=== PATIENT | female | born 1985 | race Caucasian/White ===

== ENCOUNTER 2016-11-24 13:28 | Emergency (ER) | payer MEDICAID, OTHER ==
[~2016-11-24] VITALS: Ht 170.2 cm; Wt 69.9 kg
[2016-11-24] MEDS ORDERED: SODIUM CHLORIDE 0.9% 500 ML IV ONE (18:09)
[2016-11-24] MEDS ORDERED: HYDROmorphone HCL 2 MG/ML VL IV ONE (18:15)
[2016-11-24] MEDS ORDERED: ONDANSETRON HCL 4 MG/2 ML VIAL IV ONE ×2 (18:15)
[2016-11-24 18:42] LABS: Basophils # (auto) 0 uL; Basophils % (auto) 0.6 % (0.0-2.0); Eosinophils # (auto) 0.1 uL; Eosinophils % (auto) 1.9 % (0.0-7.0); Hematocrit 36.2 % (36.0-46.0); Lymphocytes % (auto) 31.1 % (10.0-50.0); Mean Corpuscular Hemoglobin 29.8 pg (28.0-32.0); Mean Corpuscular Hgb Conc. 33.3 g/dL (32.0-36.0); Mean Corpuscular Volume 89.5 fL (80.0-100.0); Mean Platelet Volume 9.7 fL (7.4-10.4); Monocytes # (auto) 0.5 uL; Neutrophils # (auto) 3.8 uL; Neutrophils % (auto) 58.4 % (37.0-80.0); Platelet Count (auto) 222 10^3/uL (140-450); Red Cell Distribution Width 16.1 % (11.6-16.0); White Blood Cell 6.6 10^3/uL (4.4-10.8)
[2016-11-24 18:48] LABS: Albumin 3.3 g/dL (3.4-5.0); BUN/Creatinine Ratio 8.1; Calcium 7.7 mg/dL (8.5-10.1); Magnesium 2.4 mg/dL (1.6-2.6); Potassium 3.6 mmol/L (3.5-5.1)
[2016-11-24 18:50] LABS: Bilirubin, Total 0.1 mg/dL (0.2-1.0); Total Protein 6.4 g/dL (6.4-8.2)
[2016-11-24 20:15] VITALS: BP 116/71
== END 2016-11-24 20:55 | disposition home or self-care (01) ==
LOC: ER 13:28
DX: S16.1XXA Strain of muscle, fascia and tendon at neck level, initial encounter (principal); S30.1XXA Contusion of abdominal wall, initial encounter; S09.8XXA Other specified injuries of head, initial encounter; K21.9 Gastro-esophageal reflux disease without esophagitis; J45.909 Unspecified asthma, uncomplicated; Z90.710 Acquired absence of both cervix and uterus; F17.210 Nicotine dependence, cigarettes, uncomplicated; Z88.0 Allergy status to penicillin; Z88.6 Allergy status to analgesic agent; V49.49XA Driver injured in collision with other motor vehicles in traffic accident, initial encounter; Y93.89 Activity, other specified; Y99.8 Other external cause status; Y92.410 Unspecified street and highway as the place of occurrence of the external cause
CPT/HCPCS: 36415; 70450; 72125; 74176; 80053; 83735; 85025; 94761; 96374; 96375; 99285; J1170; J2405; J7030

== ENCOUNTER 2016-12-22 11:00 | Emergency (ER) | payer MEDICAID ==
[~2016-12-22] VITALS: Ht 170.2 cm; Wt 70.8 kg
[2016-12-22 11:56] LABS: Basophils # (auto) 0.1 uL; Basophils % (auto) 1.2 % (0.0-2.0); Eosinophils # (auto) 0.1 uL; Eosinophils % (auto) 1.1 % (0.0-7.0); Hematocrit 38.1 % (36.0-46.0); Hemoglobin 12.8 g/dL (12.2-16.2); Lymphocytes # (auto) 1.4 uL; Lymphocytes % (auto) 19.2 % (10.0-50.0); Mean Corpuscular Hemoglobin 29.5 pg (28.0-32.0); Mean Corpuscular Hgb Conc. 33.5 g/dL (32.0-36.0); Mean Corpuscular Volume 87.9 fL (80.0-100.0); Mean Platelet Volume 8.5 fL (7.4-10.4); Monocytes # (auto) 0.6 uL; Monocytes % (auto) 7.7 % (0.0-12.0); Neutrophils # (auto) 5.3 uL; Neutrophils % (auto) 70.8 % (37.0-80.0); Platelet Count (auto) 298 10^3/uL (140-450); Red Cell Distribution Width 14.4 % (11.6-16.0); White Blood Cell 7.5 10^3/uL (4.4-10.8)
[2016-12-22 12:18] LABS: Albumin 3.7 g/dL (3.4-5.0); BUN/Creatinine Ratio 6.1; Bilirubin, Total 0.4 mg/dL (0.2-1.0); Calcium 8.9 mg/dL (8.5-10.1); Potassium 3.9 mmol/L (3.5-5.1)
[2016-12-22 12:19] VITALS: BP 122/81
== END 2016-12-22 15:09 | disposition home or self-care (01) ==
LOC: ER 11:04
DX: J40 Bronchitis, not specified as acute or chronic (principal); J45.909 Unspecified asthma, uncomplicated; K21.9 Gastro-esophageal reflux disease without esophagitis; F17.210 Nicotine dependence, cigarettes, uncomplicated
CPT/HCPCS: 36415; 70450; 71010; 80053; 85025

== ENCOUNTER 2017-03-17 19:02 | Emergency (ER) | payer MEDICAID ==
[~2017-03-17] VITALS: Ht 170.2 cm; Wt 70.3 kg
[2017-03-17 19:51] LABS: Urine RBC None Seen /hpf (0 - 4)
[2017-03-17 20:10] LABS: Urine Bilirubin Negative (Negative); Urine Blood Negative /uL (Negative); Urine Color Yellow (Yellow); Urine Glucose Normal (Normal); Urine Ketone Negative (Negative); Urine Mucus FEW (None Seen); Urine Nitrite Negative (Negative); Urine Squamous Epithelial Cell MOD /hpf (<5); Urine Urobilinogen Normal (Negative)
[2017-03-17 23:44] LABS: Basophils # (auto) 0.1 uL; Basophils % (auto) 0.9 % (0.0-2.0); Eosinophils # (auto) 0 uL; Eosinophils % (auto) 0.6 % (0.0-7.0); Hemoglobin 12.3 g/dL (12.2-16.2); Lymphocytes # (auto) 1.3 uL; Lymphocytes % (auto) 15.3 % (10.0-50.0); Mean Corpuscular Hemoglobin 28.6 pg (28.0-32.0); Mean Corpuscular Hgb Conc. 33.2 g/dL (32.0-36.0); Mean Platelet Volume 8.4 fL (7.4-10.4); Monocytes # (auto) 0.6 uL; Monocytes % (auto) 7.5 % (0.0-12.0); Neutrophils # (auto) 6.2 uL; Neutrophils % (auto) 75.7 % (37.0-80.0); Platelet Count (auto) 231 10^3/uL (140-450); Red Cell Distribution Width 15.6 % (11.6-16.0); White Blood Cell 8.2 10^3/uL (4.4-10.8)
[2017-03-18 00:03] LABS: INR 0.93 (0.9-1.15); Partial Thromboplastin Time 31.6 sec (22.64-33.71); Prothrombin Time 10.1 sec (9.37-12.3)
[2017-03-18 00:06] LABS: Albumin 3.4 g/dL (3.4-5.0); Calcium 8.3 mg/dL (8.5-10.1)
[2017-03-18 00:08] LABS: Bilirubin, Total 0.3 mg/dL (0.2-1.0); Total Protein 7.4 g/dL (6.4-8.2)
[2017-03-18] MEDS ORDERED: IOHEXOL 300 MG/ML 100ML BOTTLE IJ ONE (02:21)
[2017-03-18] MEDS ORDERED: ONDANSETRON HCL 4 MG/2 ML VIAL IV ONE (02:30)
[2017-03-18] MEDS ORDERED: SODIUM CHLORIDE 0.9% 1,000 ML IV ONE (02:30)
[2017-03-18] MEDS ORDERED: HYDROmorphone HCL 2 MG/ML VL IV ONE (02:30)
[2017-03-18] MEDS ORDERED: LEVOFLOXACIN 750MG 150 ML IV ONE (04:15)
[2017-03-18] MEDS ORDERED: methylPREDNISolone SOD SUCC 125 MG/2 ML VL IV ONE (04:15)
[2017-03-18 07:46] VITALS: BP 106/64
== END 2017-03-18 08:05 | disposition home or self-care (01) ==
LOC: ER 19:19
DX: R59.9 Enlarged lymph nodes, unspecified (principal); J35.2 Hypertrophy of adenoids; J34.9 Unspecified disorder of nose and nasal sinuses; R51 Headache; J45.909 Unspecified asthma, uncomplicated; K21.9 Gastro-esophageal reflux disease without esophagitis; F17.210 Nicotine dependence, cigarettes, uncomplicated; Z88.0 Allergy status to penicillin; Z88.6 Allergy status to analgesic agent; Z90.710 Acquired absence of both cervix and uterus
CPT/HCPCS: 36415; 70450; 70490; 70491; 72125; 80053; 81001; 81025; 85025; 85610; 85730; 96361; 96365; 96375; 99285; J1170; J1956; J2405; J2930; J7030; Q9967

== ENCOUNTER 2017-03-23 13:13 | Emergency (ER) | payer MEDICAID ==
[~2017-03-23] VITALS: Ht 170.2 cm; Wt 72.6 kg
[2017-03-23 13:40] VITALS: BP 115/71
== END 2017-03-23 15:43 | disposition home or self-care (01) ==
LOC: ER 13:13
DX: J02.9 Acute pharyngitis, unspecified (principal); J34.9 Unspecified disorder of nose and nasal sinuses; I48.91 Unspecified atrial fibrillation; K21.9 Gastro-esophageal reflux disease without esophagitis; F17.210 Nicotine dependence, cigarettes, uncomplicated; Z90.710 Acquired absence of both cervix and uterus; Z88.6 Allergy status to analgesic agent; Z88.0 Allergy status to penicillin

== ENCOUNTER 2017-04-24 12:31 | Emergency (ER) | payer MEDICAID ==
[~2017-04-24] VITALS: Ht 170.2 cm; Wt 73.9 kg
[2017-04-24 12:58] VITALS: BP 116/73
[2017-04-24] MEDS ORDERED: KETOROLAC TROMETH 60MG/2ML VIAL IM ONE (13:30)
== END 2017-04-24 14:00 | disposition home or self-care (01) ==
LOC: ER 12:34
DX: J01.01 Acute recurrent maxillary sinusitis (principal); J45.909 Unspecified asthma, uncomplicated; K21.9 Gastro-esophageal reflux disease without esophagitis; F17.210 Nicotine dependence, cigarettes, uncomplicated; Z88.5 Allergy status to narcotic agent; Z88.0 Allergy status to penicillin; Z88.6 Allergy status to analgesic agent; Z90.710 Acquired absence of both cervix and uterus
CPT/HCPCS: 96372; 99283; J1885

== ENCOUNTER 2017-05-24 11:18 | Emergency (ER) | payer MEDICAID ==
[~2017-05-24] VITALS: Ht 170.2 cm; Wt 71.7 kg
[2017-05-24 17:11] LABS: Basophils # (auto) 0.1 uL; Eosinophils # (auto) 0.1 uL; Eosinophils % (auto) 0.8 % (0.0-7.0); Hematocrit 40.6 % (36.0-46.0); Hemoglobin 13.7 g/dL (12.2-16.2); Lymphocytes # (auto) 2.1 uL; Lymphocytes % (auto) 27.9 % (10.0-50.0); Mean Corpuscular Hemoglobin 29.8 pg (28.0-32.0); Mean Corpuscular Hgb Conc. 33.7 g/dL (32.0-36.0); Mean Corpuscular Volume 88.3 fL (80.0-100.0); Mean Platelet Volume 8.9 fL (7.4-10.4); Monocytes # (auto) 0.6 uL; Monocytes % (auto) 7.3 % (0.0-12.0); Neutrophils # (auto) 4.8 uL; Platelet Count (auto) 194 10^3/uL (140-450); Red Cell Distribution Width 16.1 % (11.6-16.0); White Blood Cell 7.6 10^3/uL (4.4-10.8)
[2017-05-24] MEDS ORDERED: SODIUM CHLORIDE 0.9% 1,000 ML IV ONE (17:26)
[2017-05-24 17:28] LABS: Albumin 3.9 g/dL (3.4-5.0); BUN/Creatinine Ratio 6.4; Calcium 8.5 mg/dL (8.5-10.1); Potassium 3.6 mmol/L (3.5-5.1)
[2017-05-24] MEDS ORDERED: methylPREDNISolone SOD SUCC 125 MG/2 ML VL IV ONE (17:30)
[2017-05-24] MEDS ORDERED: ALBUTEROL SULF 2.5 MG/0.5ML(0.5%) NEB SOLN HHN ONE (17:30)
[2017-05-24] MEDS ORDERED: IPRATROPIUM BROM 0.5 MG/2.5ML INH SOL HHN ONE (17:30)
[2017-05-24 17:31] LABS: Bilirubin, Total 0.3 mg/dL (0.2-1.0); Total Protein 7.6 g/dL (6.4-8.2)
[2017-05-24 19:10] VITALS: BP 101/65
== END 2017-05-24 19:14 | disposition home or self-care (01) ==
LOC: ER 11:18
DX: J40 Bronchitis, not specified as acute or chronic (principal); R11.2 Nausea with vomiting, unspecified; K21.9 Gastro-esophageal reflux disease without esophagitis; Z87.891 Personal history of nicotine dependence; Z88.0 Allergy status to penicillin; Z88.6 Allergy status to analgesic agent; Z85.42 Personal history of malignant neoplasm of other parts of uterus; Z90.710 Acquired absence of both cervix and uterus
CPT/HCPCS: 36415; 71010; 80053; 85025; 94640; 94761; 96361; 96374; 99285; J2930; J7030

== ENCOUNTER 2019-05-23 01:25 | Emergency (ER) | payer MEDICAID ==
[~2019-05-23] VITALS: Ht 170.2 cm; Wt 71.7 kg
[2019-05-23] MEDS ORDERED: SODIUM CHLORIDE 0.9% 1,000 ML IV ONE (03:00)
[2019-05-23] MEDS ORDERED: PROMETHAZINE HCL 25 MG/ML 1ML IV ONE (03:00)
[2019-05-23] MEDS ORDERED: KETOROLAC TROMETH 30 MG/ML 1ML VIAL IV ONE (03:15)
[2019-05-23 03:26] LABS: Basophils # (auto) 0.1 uL; Basophils % (auto) 1.1 % (0.0-2.0); Eosinophils # (auto) 0.1 uL; Eosinophils % (auto) 0.9 % (0.0-7.0); Hematocrit 40.2 % (36.0-46.0); Hemoglobin 13.8 g/dL (12.2-16.2); Lymphocytes # (auto) 2.1 uL; Lymphocytes % (auto) 35.7 % (10.0-50.0); Mean Corpuscular Hemoglobin 31.4 pg (28.0-32.0); Mean Corpuscular Hgb Conc. 34.2 g/dL (32.0-36.0); Mean Corpuscular Volume 91.7 fL (80.0-100.0); Monocytes # (auto) 0.4 uL; Monocytes % (auto) 6.8 % (0.0-12.0); Neutrophils # (auto) 3.3 uL; Neutrophils % (auto) 55.5 % (37.0-80.0); Platelet Count (auto) 207 10^3/uL (140-450); Red Blood Cells 4.38 10^6/uL (4.0-5.20); Red Cell Distribution Width 13.5 % (11.8-14.3)
[2019-05-23] MEDS ORDERED: MORPHINE SULFATE 4 MG/ML SYR/VIAL IV ONE (03:45)
[2019-05-23 03:50] LABS: Albumin 4.1 g/dL (3.4-5.0); BUN/Creatinine Ratio 7.2; Calcium 8.5 mg/dL (8.5-10.1); Potassium 3.2 mmol/L (3.5-5.1)
[2019-05-23 03:52] LABS: Bilirubin, Total 0.4 mg/dL (0.2-1.0); Total Protein 7.3 g/dL (6.4-8.2)
[2019-05-23] MEDS ORDERED: LORazepam 2MG/ML-1ML VIAL IV ONE (04:00)
[2019-05-23 06:20] VITALS: BP 96/62
== END 2019-05-23 06:48 | disposition home or self-care (01) ==
LOC: ER 01:29
DX: G43.509 Persistent migraine aura without cerebral infarction, not intractable, without status migrainosus (principal); K52.9 Noninfective gastroenteritis and colitis, unspecified; F17.210 Nicotine dependence, cigarettes, uncomplicated; K21.9 Gastro-esophageal reflux disease without esophagitis; J45.909 Unspecified asthma, uncomplicated
CPT/HCPCS: 36415; 70450; 80053; 85025; 96361; 96374; 96375; 99284; J1885; J2060; J2550; J7030

== ENCOUNTER 2022-12-31 23:40 | Inpatient (IN) | payer MEDICAID ==
[~2022-12-31] VITALS: Ht 170.2 cm; Wt 68.4 kg
[2023-01-01] MEDS ORDERED: PANTOPRAZOLE 40mg/50ML NS AE 50 ML IV ONE ×2 (01:30→10:15)
[2023-01-01] MEDS ORDERED: PANTOPRAZOLE 80 MG in SODIUM CHL 0.9% 100 ML IV ONE (01:30)
[2023-01-01 01:43] LABS: Basophils # (auto) 0.1 10 ^3/uL (0-0.2); Basophils % (auto) 1.5 % (0.0-2.0); Eosinophils # (auto) 0.1 10 ^3/uL (0-0.8); Eosinophils % (auto) 1.3 % (0.0-7.0); Hematocrit 40.2 % (36.0-46.0); Hemoglobin 13.9 g/dL (12.2-16.2); Lymphocytes % (auto) 35.7 % (10.0-50.0); Mean Corpuscular Hemoglobin 32.3 pg (28.0-32.0); Mean Corpuscular Hgb Conc. 34.7 g/dL (32.0-36.0); Monocytes # (auto) 0.4 10 ^3/uL (0-1.3); Monocytes % (auto) 6.6 % (0.0-12.0); Neutrophils % (auto) 54.9 % (37.0-80.0); Nucleated Red Blood Cells % 0.1 %; Red Blood Cells 4.32 10^6/uL (4.0-5.20); Red Cell Distribution Width 13.5 % (11.8-14.3); White Blood Cell 5.5 10^3/uL (4.4-10.8)
[2023-01-01 01:49] LABS: Urine Amorphous Crystal FEW /hpf (None Seen); Urine Bacteria NONE SEEN /hpf (None Seen); Urine Blood Negative /uL (Negative); Urine Specific Gravity 1.011 (1.001-1.035); Urine WBC 3 /hpf (0 - 5)
[2023-01-01 01:58] LABS: Partial Thromboplastin Time 28.3 sec (24.6-33.4)
[2023-01-01 01:59] LABS: Albumin 3.5 g/dL (3.4-5.0); BUN/Creatinine Ratio 9.2 (10.0-20.0); Calcium 8.8 mg/dL (8.5-10.1); Potassium 3.4 mmol/L (3.5-5.1)
[2023-01-01 02:02] LABS: Bilirubin, Total 0.3 mg/dL (0.2-1.0); Total Protein 6.3 g/dL (6.4-8.2)
[2023-01-01] MEDS ORDERED: PANTOPRAZOLE 40 MG/10 ML VIAL INJ IV ONE (02:17)
[2023-01-01] MEDS ORDERED: ONDANSETRON HCL 4 MG/2 ML VIAL ONE (02:30)
[2023-01-01] MEDS ORDERED: MORPHINE SULFATE 4 MG/ML SYR/VIAL ONE (02:30)
[2023-01-01] MEDS ORDERED: ONDANSETRON HCL 4 MG/2 ML VIAL IV ONE (02:45)
[2023-01-01] MEDS ORDERED: HYDROmorphone HCL 2 MG/ML VL/or syr IV ONE (02:45)
[2023-01-01] MEDS ORDERED: LACTATED RINGER'S 1,000 ML IV ONE ×2 (03:45→06:45)
[2023-01-01] MEDS ORDERED: KETOROLAC TROMETH 30 MG/ML 1ML VIAL IV ONE (06:45)
[2023-01-01] MEDS ORDERED: ALBUMIN 25% 100 ML IV ONE (07:15)
[2023-01-01] MEDS ORDERED: POTASSIUM CHL 20 Meq TABLET PO ONE (10:15)
[2023-01-01] MEDS: ONDANSETRON HCL 4 MG/2 ML VIAL IV PRN ×3 (11:35→21:23)
[2023-01-01] MEDS: HYDROmorphone HCL 2 MG/ML VL/or syr IV PRN ×3 (11:38→21:23)
[2023-01-01] MEDS: SODIUM CHLORIDE 0.9% 1,000 ML IV SCH ×2 (11:41→21:23)
[2023-01-01] MEDS: SUCRALFATE 1 GM/10 ML ORAL SUSP PO SCH (22:13)
[2023-01-02] MEDS: ONDANSETRON HCL 4 MG/2 ML VIAL IV PRN ×4 (02:24→22:04)
[2023-01-02] MEDS: HYDROmorphone HCL 2 MG/ML VL/or syr IV PRN ×4 (02:28→22:03)
[2023-01-02 02:43] VITALS: BP 96/59
[2023-01-02] MEDS: SODIUM CHLORIDE 0.9% 1,000 ML IV SCH ×3 (02:55→22:02)
[2023-01-02] MEDS ORDERED: CARI1CAP PO (04:11)
[2023-01-02] MEDS ORDERED: ROSU1TAB12 PO (04:11)
[2023-01-02] MEDS ORDERED: GABA300C10 PO (04:11)
[2023-01-02] MEDS ORDERED: ONDA-144 PO ×2 (04:11)
[2023-01-02] MEDS ORDERED: ASPI-498 OR (04:11)
[2023-01-02] MEDS ORDERED: HYDR-4798 PO (04:11)
[2023-01-02] MEDS ORDERED: CARI-277 PO (04:11)
[2023-01-02] MEDS ORDERED: TOPI1CAP (04:11)
[2023-01-02] MEDS ORDERED: AMIT1TAB34 PO (04:11)
[2023-01-02 05:00] VITALS: BP 83/53
[2023-01-02 06:10] LABS: Basophils # (auto) 0 10 ^3/uL (0-0.2); Basophils % (auto) 0.7 % (0.0-2.0); Eosinophils # (auto) 0.1 10 ^3/uL (0-0.8); Eosinophils % (auto) 1.1 % (0.0-7.0); Hematocrit 33.6 % (36.0-46.0); Hemoglobin 11.5 g/dL (12.2-16.2); Lymphocytes # (auto) 2.1 10 ^3/uL (0.4-5.4); Lymphocytes % (auto) 31.7 % (10.0-50.0); Mean Corpuscular Hemoglobin 32.3 pg (28.0-32.0); Mean Corpuscular Hgb Conc. 34.1 g/dL (32.0-36.0); Mean Corpuscular Volume 94.7 fL (80.0-100.0); Monocytes # (auto) 0.4 10 ^3/uL (0-1.3); Monocytes % (auto) 6.1 % (0.0-12.0); Neutrophils # (auto) 3.9 10 ^3/uL (1.6-8.6); Neutrophils % (auto) 60.4 % (37.0-80.0); Nucleated Red Blood Cells % 0.1 %; Red Blood Cells 3.55 10^6/uL (4.0-5.20); Red Cell Distribution Width 13.9 % (11.8-14.3); White Blood Cell 6.5 10^3/uL (4.4-10.8)
[2023-01-02] MEDS: SUCRALFATE 1 GM/10 ML ORAL SUSP PO SCH ×4 (06:13→22:02)
[2023-01-02 06:39] LABS: Potassium 3.4 mmol/L (3.5-5.1)
[2023-01-02 06:57] LABS: Albumin 2.8 g/dL (3.4-5.0); BUN/Creatinine Ratio 8.9 (10.0-20.0); Bilirubin, Total 0.3 mg/dL (0.2-1.0); Calcium 7.8 mg/dL (8.5-10.1); Total Protein 4.6 g/dL (6.4-8.2)
[2023-01-02 08:00] VITALS: BP 107/75
[2023-01-02 09:00] VITALS: BP 107/75
[2023-01-02] MEDS ORDERED: RIZA10TA22 PO (16:21)
[2023-01-02] MEDS: ACETAMINOPHEN 325 MG TAB PO PRN ×2 (18:25→23:03)
[2023-01-02 22:00] VITALS: BP 103/57
[2023-01-03] MEDS: SODIUM CHLORIDE 0.9% 1,000 ML IV SCH ×3 (03:30→20:35)
[2023-01-03 05:00] VITALS: BP 96/54
[2023-01-03] MEDS: SUCRALFATE 1 GM/10 ML ORAL SUSP PO SCH ×4 (06:03→21:04)
[2023-01-03 09:00] VITALS: BP_SYST 103; BP_SYST 95; BP_DIAS 52; BP_DIAS 69
[2023-01-03] MEDS: ONDANSETRON HCL 4 MG/2 ML VIAL IV PRN ×3 (10:19→20:42)
[2023-01-03] MEDS: HYDROmorphone HCL 2 MG/ML VL/or syr IV PRN ×3 (10:19→20:42)
[2023-01-03] MEDS ORDERED: PANTOPRAZOLE 40 MG/10 ML VIAL INJ IV ONE (11:00)
[2023-01-03] MEDS: ACETAMINOPHEN 325 MG TAB PO PRN ×3 (11:22→23:20)
[2023-01-03 13:00] VITALS: BP 100/59
[2023-01-03 16:53] VITALS: BP 103/64
[2023-01-03] MEDS: DOCUSATE SOD 100 MG CAP PO PRN (20:41)
[2023-01-03] MEDS: PANTOPRAZOLE 40 MG/10 ML VIAL INJ IV SCH (21:04)
[2023-01-03 22:00] VITALS: BP 123/78
[2023-01-04] MEDS: HYDROmorphone HCL 2 MG/ML VL/or syr IV PRN ×5 (02:17→22:27)
[2023-01-04] MEDS: ONDANSETRON HCL 4 MG/2 ML VIAL IV PRN ×4 (02:17→22:26)
[2023-01-04 05:00] VITALS: BP 95/62
[2023-01-04] MEDS: SODIUM CHLORIDE 0.9% 1,000 ML IV SCH ×3 (05:39→22:44)
[2023-01-04] MEDS: SUCRALFATE 1 GM/10 ML ORAL SUSP PO SCH ×4 (06:13→22:26)
[2023-01-04] MEDS ORDERED: diphenhdrAMINE HCL 50 MG/1 ML VL ONE (07:11)
[2023-01-04] MEDS ORDERED: FLUMAZENIL 0.1 MG/ML INJ 10ML MDV IV ONE (07:23)
[2023-01-04] MEDS ORDERED: NALOXONE HCL 0.4 MG/ML VIAL ONE (07:23)
[2023-01-04] MEDS ORDERED: LIDOCAINE VISCOUS 2% 15ML UD ONE (08:51)
[2023-01-04] MEDS: MIDAZOLAM HCL 2MG/2ML 2ml VIAL (1mg/ml) ONE ×3 (08:53→08:59)
[2023-01-04] MEDS: fentaNYL CITRATE 100 MCG/2 ML VL ONE ×3 (08:53→08:59)
[2023-01-04 09:00] VITALS: BP 97/69
[2023-01-04] MEDS ORDERED: PANTOPRAZOLE 40 MG/10 ML VIAL INJ IV SCH (10:00)
[2023-01-04] MEDS: PANTOPRAZOLE 40 MG/10 ML VIAL INJ IV SCH ×2 (11:04→22:25)
[2023-01-04 13:00] VITALS: BP 92/53
[2023-01-04 13:10] LABS: Hepatitis C Antibody Negative (Negative)
[2023-01-04] MEDS: METOCLOPRAMIDE HCL 5MG/ml INJ 2ml VIAL IV SCH ×2 (14:21→22:26)
[2023-01-04 17:00] VITALS: BP 95/70
[2023-01-04] MEDS: ACETAMINOPHEN 325 MG TAB PO PRN (18:09)
[2023-01-04 22:00] VITALS: BP 125/90
[2023-01-05] MEDS: HYDROmorphone HCL 2 MG/ML VL/or syr IV PRN ×5 (04:50→22:30)
[2023-01-05] MEDS: METOCLOPRAMIDE HCL 5MG/ml INJ 2ml VIAL IV SCH ×3 (05:53→21:13)
[2023-01-05] MEDS: SODIUM CHLORIDE 0.9% 1,000 ML IV SCH ×3 (05:53→22:35)
[2023-01-05] MEDS: SUCRALFATE 1 GM/10 ML ORAL SUSP PO SCH ×4 (05:53→21:14)
[2023-01-05 09:00] VITALS: BP 104/63
[2023-01-05] MEDS: ONDANSETRON HCL 4 MG/2 ML VIAL IV PRN ×2 (09:12→17:37)
[2023-01-05] MEDS: PANTOPRAZOLE 40 MG/10 ML VIAL INJ IV SCH ×2 (09:12→21:13)
[2023-01-05] MEDS: ACETAMINOPHEN 325 MG TAB PO PRN ×2 (09:17→15:51)
[2023-01-05 13:00] VITALS: BP 106/69
[2023-01-05 16:40] VITALS: BP 101/68
[2023-01-05 22:00] VITALS: BP 118/77
[2023-01-05] MEDS: DOCUSATE SOD 100 MG CAP PO PRN (22:48)
[2023-01-06] MEDS: ONDANSETRON HCL 4 MG/2 ML VIAL IV PRN (04:16)
[2023-01-06] MEDS: HYDROmorphone HCL 2 MG/ML VL/or syr IV PRN ×2 (04:16→09:28)
[2023-01-06 05:01] VITALS: BP 131/70
[2023-01-06] MEDS: METOCLOPRAMIDE HCL 5MG/ml INJ 2ml VIAL IV SCH (06:07)
[2023-01-06] MEDS: SUCRALFATE 1 GM/10 ML ORAL SUSP PO SCH ×2 (06:08→12:11)
[2023-01-06] MEDS: SODIUM CHLORIDE 0.9% 1,000 ML IV SCH (06:08)
[2023-01-06 09:00] VITALS: BP 103/67
[2023-01-06] MEDS: PANTOPRAZOLE 40 MG/10 ML VIAL INJ IV SCH (09:21)
[2023-01-06 09:28] VITALS: BP 103/67
[2023-01-06] MEDS ORDERED: SUCR1SUS10 PO (11:09)
[2023-01-06] MEDS ORDERED: METO-281 PO (11:09)
[2023-01-06] MEDS ORDERED: HYDR-4798 PO (11:09)
[2023-01-06] MEDS ORDERED: PANT40TA2 PO (11:15)
== END 2023-01-06 14:00 | disposition home or self-care (01) | DRG 241 ==
LOC: ER 23:40 → OVERFLOW 01-01 10:23 → WEST WING 01-01 23:07 → OVERFLOW 01-01 23:30 → WEST WING 01-02 02:43
PROVIDERS: ADMIT Nurse Practitioner Family; ATTEND Internal Medicine
PROC: 0DB68ZX Excision of Stomach, Via Natural or Artificial Opening Endoscopic, Diagnostic (ICD-10-PCS; 2023-01-04)
PROC: 0DB98ZX Excision of Duodenum, Via Natural or Artificial Opening Endoscopic, Diagnostic (ICD-10-PCS; principal; 2023-01-04 08:48)
DX: K29.71 Gastritis, unspecified, with bleeding (principal); K31.3 Pylorospasm, not elsewhere classified; D64.9 Anemia, unspecified; E87.6 Hypokalemia; N83.299 Other ovarian cyst, unspecified side; F17.210 Nicotine dependence, cigarettes, uncomplicated; J45.909 Unspecified asthma, uncomplicated; K21.9 Gastro-esophageal reflux disease without esophagitis; K31.84 Gastroparesis; F32.A Depression, unspecified; K29.81 Duodenitis with bleeding; Z90.710 Acquired absence of both cervix and uterus; Z88.0 Allergy status to penicillin; Z88.5 Allergy status to narcotic agent; Z88.8 Allergy status to other drugs, medicaments and biological substances
CPT/HCPCS: 36415; 43239; 74176; 80053; 81001; 83690; 85025; 85610; 85730; 86677; 86803; 86850; 86900; 86901; 87340; 96365; 96375; C9113; G0378; J1885; J2250; J2405; P9047

== ENCOUNTER 2023-02-23 08:11 | Day surgery (SDC) | payer MEDICAID ==
[2023-02-19 14:45] LABS: Basophils # (auto) 0 10 ^3/uL (0-0.2); Basophils % (auto) 0.9 % (0.0-2.0); Eosinophils # (auto) 0.1 10 ^3/uL (0-0.8); Eosinophils % (auto) 1.4 % (0.0-7.0); Hematocrit 41.9 % (36.0-46.0); Hemoglobin 14.3 g/dL (12.2-16.2); Lymphocytes % (auto) 36.5 % (10.0-50.0); Mean Corpuscular Hemoglobin 31.3 pg (28.0-32.0); Monocytes # (auto) 0.3 10 ^3/uL (0-1.3); Monocytes % (auto) 6.2 % (0.0-12.0); Nucleated Red Blood Cells % 0.1 %; Red Blood Cells 4.56 10^6/uL (4.0-5.20); Red Cell Distribution Width 13.1 % (11.8-14.3); White Blood Cell 5.4 10^3/uL (4.4-10.8)
[2023-02-19 15:01] LABS: INR 0.98 (0.9-1.15); Partial Thromboplastin Time 28.8 sec (24.6-33.4)
[2023-02-19 15:12] LABS: Calcium 8.5 mg/dL (8.5-10.1); Potassium 3.8 mmol/L (3.5-5.1)
[2023-02-19 15:20] LABS: Albumin 3.6 g/dL (3.4-5.0); Bilirubin, Total 0.2 mg/dL (0.2-1.0); Total Protein 6.5 g/dL (6.4-8.2)
[~2023-02-23] VITALS: Ht 170.2 cm; Wt 53.5 kg
[~2023-02-23 08:11] MED LIST: AMIT10TA12 PO; AMIT10TA9 GT; CARI1CAP PO; CHOL20007 PO; FERR-7 PO; GABA-1250 PO; HYDR-4798 PO; HYDRX10T PO; SERT25TA84 PO
[2023-02-23] MEDS ORDERED: NALOXONE HCL 0.4 MG/ML VIAL ONE (08:21)
[2023-02-23] MEDS ORDERED: SODIUM CHLORIDE LOCK 10 ML ONE (08:21)
[2023-02-23] MEDS ORDERED: LIDOCAINE VISCOUS 2% 15ML UD ONE (08:21)
[2023-02-23] MEDS ORDERED: FLUMAZENIL 0.1 MG/ML INJ 10ML MDV IV ONE (08:21)
[2023-02-23] MEDS ORDERED: diphenhdrAMINE HCL 50 MG/1 ML VL ONE (08:22)
[2023-02-23] MEDS: MIDAZOLAM HCL 5 MG/ML-1ML VIAL ONE ×2 (08:53→08:56)
[2023-02-23] MEDS: fentaNYL CITRATE 100 MCG/2 ML VL ONE ×2 (08:53→08:56)
[2023-02-23] MEDS ORDERED: CLINDAMYCIN 600MG IV 50 ML IV ONE (09:03)
[2023-02-23] MEDS ORDERED: HYDROmorphone HCL 2 MG/ML VL/or syr IV ONE (10:00)
[2023-02-23 10:54] VITALS: BP 108/72
== END 2023-02-23 11:05 | disposition home or self-care (01) ==
LOC: GI 08:11
PROVIDERS: ATTEND Internal Medicine Gastroenterology
DX: R11.2 Nausea with vomiting, unspecified (principal); K31.84 Gastroparesis; K29.70 Gastritis, unspecified, without bleeding
CPT/HCPCS: 36415; 43246; 80053; 84702; 85025; 85610; 85730; J1170; J1200; J2250; J3010; J3490

== ENCOUNTER 2023-05-05 13:21 | Inpatient (IN) | payer MEDICAID ==
[~2023-05-05] VITALS: Ht 170.2 cm; Wt 52.4 kg
[2023-05-05] MEDS ORDERED: SODIUM CHLORIDE 0.9% 1,000 ML IV ONE (13:45)
[2023-05-05] MEDS ORDERED: ONDANSETRON HCL 4 MG/2 ML VIAL IV ONE (13:45)
[2023-05-05 14:26] LABS: Alanine Aminotransferase 16 U/L (7-40); Albumin 4.1 g/dL (3.2-4.8); Alkaline Phosphatase 52 U/L (46-116); Anion Gap 5.4 (5-15); Aspartate Aminotransferase 9 U/L (13-40); BUN/Creatinine Ratio 8.2 (10.0-20.0); Bilirubin, Total 0.2 mg/dL (0.2-1.0); Blood Urea Nitrogen 6 mg/dL (9-23); Calcium 9.1 mg/dL (8.5-10.1); Carbon Dioxide 29.6 mmol/L (20-30); Chloride 108 mmol/L (98-107); Glucose 81 mg/dL (74-106); Lipase 31 U/L (12-53); Potassium 3.5 mmol/L (3.5-5.1); Sodium 143 mmol/L (136-145); Total Protein 6.1 g/dL (5.7-8.2)
[2023-05-05 14:36] LABS: Basophils # (auto) 0.1 10 ^3/uL (0-0.2); Basophils % (auto) 0.9 % (0.0-2.0); Eosinophils # (auto) 0.1 10 ^3/uL (0-0.8); Eosinophils % (auto) 0.9 % (0.0-7.0); Lymphocytes # (auto) 2.6 10 ^3/uL (0.4-5.4); Lymphocytes % (auto) 34.9 % (10.0-50.0); Mean Corpuscular Hemoglobin 31.3 pg (28.0-32.0); Mean Corpuscular Hgb Conc. 33.5 g/dL (32.0-36.0); Mean Corpuscular Volume 93.6 fL (80.0-100.0); Monocytes # (auto) 0.4 10 ^3/uL (0-1.3); Monocytes % (auto) 5.6 % (0.0-12.0); Neutrophils # (auto) 4.4 10 ^3/uL (1.6-8.6); Neutrophils % (auto) 57.7 % (37.0-80.0); Red Blood Cells 4.49 10^6/uL (4.0-5.20); Red Cell Distribution Width 13.7 % (11.8-14.3); White Blood Cell 7.6 10^3/uL (4.4-10.8)
[2023-05-05] MEDS ORDERED: HYDROmorphone HCL 2 MG/ML VL/or syr IV ONE (15:15)
[2023-05-05] MEDS ORDERED: ONDANSETRON HCL 4 MG/2 ML VIAL IV PRN (15:45)
[2023-05-05] MEDS ORDERED: DOCUSATE SOD 100 MG CAP PO PRN (15:45)
[2023-05-05] MEDS ORDERED: MORPHINE SULFATE INJ 2 MG/ml SYRG IV PRN (15:45)
[2023-05-05 15:58] LABS: Urine Bacteria FEW /hpf (None Seen); Urine Blood Negative /uL (Negative); Urine Budding Yeast FEW /hpf (None Seen); Urine Clarity HAZY (Clear); Urine Color Yellow (Yellow); Urine Mucus MANY (None Seen); Urine Protein, UAD 1+ (Negative); Urine Specific Gravity 1.028 (1.001-1.035); Urine Urobilinogen Normal (Negative); Urine WBC 1 /hpf (0 - 5); Urine pH 6.5 (5.0-8.0)
[2023-05-05] MEDS ORDERED: METOCLOPRAMIDE HCL 5MG/ml INJ 2ml VIAL IV PRN (16:15)
[2023-05-05] MEDS ORDERED: HYDROmorphone HCL 2 MG/ML VL/or syr IV PRN (16:15)
[2023-05-05] MEDS: SODIUM CHLORIDE 0.9% 1,000 ML IV SCH (16:36)
[2023-05-05 16:49] LABS: Amphetamine Screen, Urine Neg (NEGATIVE); Barbiturate Scree,Urine Neg (NEGATIVE); Benzodiazephine Screen, Urine Neg (NEGATIVE); Cannabinoid Screen, Urine Neg (NEGATIVE); Cocaine Screen, Urine Neg (NEGATIVE); Opiate Scree,Urine Neg (NEGATIVE); Phencyclidine Screen, Urine Neg (NEGATIVE)
[2023-05-05 17:23] LABS: INR 1.02 (0.9-1.15); Prothrombin Time 10.7 sec (9.3-11.8)
[2023-05-05] MEDS ORDERED: GABAPENTIN 300 MG CAP PO SCH (18:00)
[2023-05-05] MEDS ORDERED: AMITRIPTYLINE HCL 10 MG TAB PO SCH (22:00)
[2023-05-05] MEDS: DICYCLOMINE HCL 10 MG CAP PO SCH (22:00)
[2023-05-06] MEDS: SODIUM CHLORIDE 0.9% 1,000 ML IV SCH ×2 (00:05→04:04)
[2023-05-06] MEDS: DICYCLOMINE HCL 10 MG CAP PO SCH ×3 (00:09→06:04)
[2023-05-06 06:43] LABS: Basophils # (auto) 0.1 10 ^3/uL (0-0.2); Basophils % (auto) 1.2 % (0.0-2.0); Eosinophils # (auto) 0.1 10 ^3/uL (0-0.8); Eosinophils % (auto) 2.1 % (0.0-7.0); Hematocrit 37.5 % (36.0-46.0); Hemoglobin 12.7 g/dL (12.2-16.2); Lymphocytes # (auto) 2.8 10 ^3/uL (0.4-5.4); Lymphocytes % (auto) 45.7 % (10.0-50.0); Mean Corpuscular Hemoglobin 31.7 pg (28.0-32.0); Mean Corpuscular Hgb Conc. 33.9 g/dL (32.0-36.0); Mean Corpuscular Volume 93.5 fL (80.0-100.0); Monocytes # (auto) 0.5 10 ^3/uL (0-1.3); Monocytes % (auto) 7.5 % (0.0-12.0); Neutrophils # (auto) 2.6 10 ^3/uL (1.6-8.6); Neutrophils % (auto) 43.5 % (37.0-80.0); Nucleated Red Blood Cells % 0.1 %; Red Blood Cells 4.01 10^6/uL (4.0-5.20); Red Cell Distribution Width 13.9 % (11.8-14.3)
[2023-05-06 07:00] LABS: Alanine Aminotransferase 14 U/L (7-40); Albumin 3.7 g/dL (3.2-4.8); Alkaline Phosphatase 41 U/L (46-116); Anion Gap 4.5 (5-15); Aspartate Aminotransferase 9 U/L (13-40); Bilirubin, Total 0.2 mg/dL (0.2-1.0); Calcium 8.2 mg/dL (8.7-10.4); Carbon Dioxide 25.5 mmol/L (20-30); Chloride 110 mmol/L (98-107); Glucose 90 mg/dL (74-106); Potassium 3.4 mmol/L (3.5-5.1); Sodium 140 mmol/L (136-145); Total Protein 5.8 g/dL (5.7-8.2)
[2023-05-06 07:03] LABS: BUN/Creatinine Ratio 8.2 (10.0-20.0); Blood Urea Nitrogen < 5 mg/dL (9-23)
[2023-05-06] MEDS ORDERED: SUCCINYLCHOLINE CHLORIDE 20 MG/ML 10ML VIAL IV ONE (07:26)
[2023-05-06] MEDS ORDERED: PROPOFOL 10 MG/ML 20 ML IV ONE (07:29)
[2023-05-06] MEDS ORDERED: SODIUM CHLORIDE LOCK 10 ML ONE (07:29)
[2023-05-06] MEDS ORDERED: ONDANSETRON HCL 4 MG/2 ML VIAL ONE (07:29)
[2023-05-06] MEDS ORDERED: MIDAZOLAM HCL 2MG/2ML 2ml VIAL (1mg/ml) ONE (07:29)
[2023-05-06] MEDS ORDERED: fentaNYL CITRATE 100 MCG/2 ML VL ONE (07:29)
[2023-05-06] MEDS ORDERED: KETAMINE HCL 10 ML ONE (07:34)
[2023-05-06 08:09] VITALS: PULSE 52; RESP 14; O2SAT 100
[2023-05-06] MEDS ORDERED: PANTOPRAZOLE 40 MG/10 ML VIAL INJ IV SCH ×2 (10:00)
[2023-05-06] MEDS ORDERED: MORPHINE SULFATE INJ 2 MG/ml SYRG IV PRN (11:15)
[2023-05-06] MEDS ORDERED: METOCLOPRAMIDE HCL 5MG/ml INJ 2ml VIAL IV PRN (11:15)
[2023-05-06] MEDS ORDERED: HYDROmorphone HCL 2 MG/ML VL/or syr IV PRN ×2 (11:15)
[2023-05-06 12:24] VITALS: PULSE 86; RESP 18; TEMP 99; O2SAT 99
[2023-05-06] MEDS ORDERED: HYDROmorphone HCL 2 MG/ML VL/or syr IV ONE (12:52)
[2023-05-06 13:55] VITALS: BP 90/67; PULSE 67; RESP 14; O2SAT 95
[2023-05-06] MEDS ORDERED: AMITRIPTYLINE HCL 25 MG TAB PO SCH (22:00)
== END 2023-05-06 14:10 | disposition home or self-care (01) | DRG 252 ==
LOC: ER 13:21 → OVERFLOW 15:52
PROVIDERS: ADMIT Nurse Practitioner Family; ATTEND Nurse Practitioner Acute Care
PROC: 0D2DXUZ Change Feeding Device in Lower Intestinal Tract, External Approach (ICD-10-PCS; principal; 2023-05-06 11:45)
DX: K94.13 Enterostomy malfunction (principal); R64 Cachexia; E11.43 Type 2 diabetes mellitus with diabetic autonomic (poly)neuropathy; K31.84 Gastroparesis; D64.9 Anemia, unspecified; E78.5 Hyperlipidemia, unspecified; F17.210 Nicotine dependence, cigarettes, uncomplicated; Y83.8 Other surgical procedures as the cause of abnormal reaction of the patient, or of later complication, without mention of misadventure at the time of the procedure; J45.909 Unspecified asthma, uncomplicated; F32.A Depression, unspecified; Z80.0 Family history of malignant neoplasm of digestive organs; Z85.42 Personal history of malignant neoplasm of other parts of uterus; Z90.711 Acquired absence of uterus with remaining cervical stump; Z92.21 Personal history of antineoplastic chemotherapy; Y92.89 Other specified places as the place of occurrence of the external cause; Z68.1 Body mass index [BMI] 19.9 or less, adult
CPT/HCPCS: 36415; 74176; 80053; 80307; 81001; 83605; 83690; 84702; 85025; 85610; 86850; 86900; 86901; 96361; 96374; C9113; G0378; J0330; J2250; J2405; J2704

== ENCOUNTER 2023-07-20 10:54 | Inpatient (IN) | payer MEDICAID ==
[~2023-07-20] VITALS: Ht 170.2 cm; Wt 66.8 kg
[2023-07-20] MEDS ORDERED: ONDANSETRON HCL 4 MG/2 ML VIAL IV ONE (12:30)
[2023-07-20] MEDS ORDERED: diphenhdrAMINE HCL 50 MG/1 ML VL IV ONE (12:30)
[2023-07-20] MEDS ORDERED: HYDROmorphone HCL 2 MG/ML VL/or syr IV ONE (12:30)
[2023-07-20] MEDS ORDERED: SODIUM CHLORIDE 0.9% 1,000 ML IVB ONE (12:30)
[2023-07-20 12:56] LABS: Urine Bacteria FEW /hpf (None Seen); Urine Blood Negative /uL (Negative); Urine Clarity Clear (Clear); Urine Color Yellow (Yellow); Urine Mucus FEW (None Seen); Urine Protein, UAD TRACE (Negative); Urine Specific Gravity 1.031 (1.001-1.035); Urine WBC 2 /hpf (0 - 5); Urine pH 6.5 (5.0-8.0)
[2023-07-20 12:59] LABS: Basophils # (auto) 0.1 10 ^3/uL (0-0.2); Basophils % (auto) 0.8 % (0.0-2.0); Eosinophils # (auto) 0.1 10 ^3/uL (0-0.8); Eosinophils % (auto) 0.8 % (0.0-7.0); Hematocrit 42.5 % (36.0-46.0); Hemoglobin 14.1 g/dL (12.2-16.2); Lymphocytes # (auto) 2.2 10 ^3/uL (0.4-5.4); Lymphocytes % (auto) 22.5 % (10.0-50.0); Mean Corpuscular Hemoglobin 31.2 pg (28.0-32.0); Mean Corpuscular Hgb Conc. 33.2 g/dL (32.0-36.0); Mean Corpuscular Volume 93.9 fL (80.0-100.0); Monocytes # (auto) 0.5 10 ^3/uL (0-1.3); Monocytes % (auto) 5.2 % (0.0-12.0); Neutrophils # (auto) 6.9 10 ^3/uL (1.6-8.6); Neutrophils % (auto) 70.7 % (37.0-80.0); Red Blood Cells 4.53 10^6/uL (4.0-5.20); Red Cell Distribution Width 13.7 % (11.8-14.3); White Blood Cell 9.8 10^3/uL (4.4-10.8)
[2023-07-20 13:18] LABS: INR 0.88 (0.9-1.15); Partial Thromboplastin Time 26.6 SEC (24.5-34.5); Prothrombin Time 9.3 sec (9.3-11.8)
[2023-07-20 13:23] LABS: Alanine Aminotransferase 27 U/L (7-40); Albumin 4.4 g/dL (3.2-4.8); Alkaline Phosphatase 61 U/L (46-116); Anion Gap 4 (5-15); Aspartate Aminotransferase 23 U/L (13-40); BUN/Creatinine Ratio 9.9 (10.0-20.0); Blood Urea Nitrogen 8 mg/dL (9-23); Calcium 8.9 mg/dL (8.7-10.4); Carbon Dioxide 29 mmol/L (20-30); Chloride 107 mmol/L (98-107); Glucose 91 mg/dL (74-106); Lipase 38 U/L (12-53); Magnesium 2.1 mg/dL (1.6-2.6); Potassium 4.5 mmol/L (3.5-5.1); Sodium 140 mmol/L (136-145)
[2023-07-20 13:24] LABS: Bilirubin, Total 0.2 mg/dL (0.2-1.0); Total Protein 6.6 g/dL (5.7-8.2)
[2023-07-20] MEDS ORDERED: DOCUSATE SOD 100 MG CAP PO PRN (15:15)
[2023-07-20] MEDS ORDERED: PANTOPRAZOLE 40 MG/10 ML VIAL INJ IV ONE (15:30)
[2023-07-20] MEDS ORDERED: ALBUTEROL MEDNEB 2.5 mg/3ml NEB NEB PRN (15:45)
[2023-07-20] MEDS ORDERED: IPRATROPIUM BROM 0.5 MG/2.5ML INH SOL NEB PRN (15:45)
[2023-07-20] MEDS: SODIUM CHLORIDE 0.9% 1,000 ML IV SCH ×2 (15:55)
[2023-07-20] MEDS: ONDANSETRON HCL 4 MG/2 ML VIAL IV PRN (21:28)
[2023-07-20] MEDS: HYDROmorphone HCL 2 MG/ML VL/or syr IV PRN (21:30)
[2023-07-21] MEDS: SODIUM CHLORIDE 0.9% 1,000 ML IV SCH ×2 (04:01→08:50)
[2023-07-21] MEDS: HYDROmorphone HCL 2 MG/ML VL/or syr IV PRN ×3 (04:18→13:22)
[2023-07-21] MEDS: ONDANSETRON HCL 4 MG/2 ML VIAL IV PRN ×2 (04:18→12:10)
[2023-07-21 07:19] LABS: Basophils # (auto) 0.1 10 ^3/uL (0-0.2); Basophils % (auto) 0.9 % (0.0-2.0); Eosinophils # (auto) 0.1 10 ^3/uL (0-0.8); Eosinophils % (auto) 1.7 % (0.0-7.0); Hematocrit 39.3 % (36.0-46.0); Lymphocytes # (auto) 2.2 10 ^3/uL (0.4-5.4); Lymphocytes % (auto) 34.7 % (10.0-50.0); Mean Corpuscular Hgb Conc. 33.1 g/dL (32.0-36.0); Mean Corpuscular Volume 93.8 fL (80.0-100.0); Monocytes # (auto) 0.5 10 ^3/uL (0-1.3); Monocytes % (auto) 7.7 % (0.0-12.0); Neutrophils # (auto) 3.5 10 ^3/uL (1.6-8.6); Red Blood Cells 4.19 10^6/uL (4.0-5.20); Red Cell Distribution Width 13.7 % (11.8-14.3); White Blood Cell 6.3 10^3/uL (4.4-10.8)
[2023-07-21 07:35] LABS: Alanine Aminotransferase 27 U/L (7-40); Alkaline Phosphatase 48 U/L (46-116); Anion Gap 3 (5-15); Aspartate Aminotransferase 23 U/L (13-40); BUN/Creatinine Ratio 9.6 (10.0-20.0); Blood Urea Nitrogen 7 mg/dL (9-23); Calcium 8.2 mg/dL (8.5-10.1); Carbon Dioxide 29 mmol/L (20-30); Chloride 109 mmol/L (98-107); Glucose 101 mg/dL (74-106); Potassium 4.5 mmol/L (3.5-5.1); Sodium 141 mmol/L (136-145)
[2023-07-21 07:36] LABS: Bilirubin, Total 0.2 mg/dL (0.2-1.0)
[2023-07-21 08:50] VITALS: PULSE 85; RESP 15; O2SAT 95
[2023-07-21] MEDS ORDERED: PANTOPRAZOLE 40 MG/10 ML VIAL INJ IV SCH (10:00)
[2023-07-21] MEDS ORDERED: AMIT100T75 PO (11:38)
[2023-07-21] MEDS ORDERED: PERCOT PO (11:40)
[2023-07-21 13:00] VITALS: BP 91/65; PULSE 90; RESP 18; TEMP 97.7; O2SAT 99
[2023-07-21 14:36] VITALS: BP 91/65; PULSE 90; RESP 18; TEMP 97.7; O2SAT 99
== END 2023-07-21 15:35 | disposition home or self-care (01) | DRG 252 ==
LOC: ER 10:54 → OVERFLOW 15:19 → CENTRAL 07-21 10:28
PROVIDERS: ADMIT Nurse Practitioner Family; ATTEND Family Medicine
DX: K94.23 Gastrostomy malfunction (principal); F32.A Depression, unspecified; G89.29 Other chronic pain; K31.84 Gastroparesis; K59.00 Constipation, unspecified; J45.909 Unspecified asthma, uncomplicated; K21.9 Gastro-esophageal reflux disease without esophagitis; Y83.8 Other surgical procedures as the cause of abnormal reaction of the patient, or of later complication, without mention of misadventure at the time of the procedure; Y82.8 Other medical devices associated with adverse incidents; Z90.710 Acquired absence of both cervix and uterus; Z88.0 Allergy status to penicillin; Z88.5 Allergy status to narcotic agent; Z85.42 Personal history of malignant neoplasm of other parts of uterus
CPT/HCPCS: 36415; 80053; 81001; 83690; 83735; 85025; 85610; 85730; 86850; 86900; 86901; C9113; G0378; J2405

== ENCOUNTER 2023-11-21 14:08 | Emergency (ER) | payer MEDICAID ==
[~2023-11-21] VITALS: Ht 170.2 cm; Wt 73.2 kg
[~2023-11-21 14:08] MED LIST changes: +AMIT100T75 PO; -AMIT10TA12 PO; -AMIT10TA9 GT; -GABA-1250 PO; -HYDR-4798 PO; +PERCOT PO
[2023-11-21 14:58] LABS: Urine Bacteria MANY /hpf (None Seen); Urine Blood Negative /uL (Negative); Urine Clarity HAZY (Clear); Urine Protein, UAD Negative (Negative); Urine Urobilinogen Normal (Negative); Urine WBC 1 /hpf (0 - 5)
[2023-11-21 15:16] LABS: Basophils # (auto) 0.1 10 ^3/uL (0-0.2); Basophils % (auto) 0.6 % (0.0-2.0); Eosinophils # (auto) 0.1 10 ^3/uL (0-0.8); Eosinophils % (auto) 1.1 % (0.0-7.0); Hematocrit 42.3 % (36.0-46.0); Hemoglobin 14.2 g/dL (12.2-16.2); Lymphocytes # (auto) 2.9 10 ^3/uL (0.4-5.4); Lymphocytes % (auto) 28.1 % (10.0-50.0); Mean Corpuscular Hgb Conc. 33.6 g/dL (32.0-36.0); Mean Corpuscular Volume 92.3 fL (80.0-100.0); Monocytes # (auto) 0.5 10 ^3/uL (0-1.3); Monocytes % (auto) 4.9 % (0.0-12.0); Neutrophils # (auto) 6.8 10 ^3/uL (1.6-8.6); Neutrophils % (auto) 65.3 % (37.0-80.0); Red Blood Cells 4.58 10^6/uL (4.0-5.20); Red Cell Distribution Width 13.1 % (11.8-14.3); White Blood Cell 10.4 10^3/uL (4.4-10.8)
[2023-11-21 15:22] LABS: Urine Color Yellow (Yellow)
[2023-11-21 15:24] LABS: Alanine Aminotransferase 13 U/L (7-40); Albumin 4.3 g/dL (3.2-4.8); Alkaline Phosphatase 46 U/L (46-116); Anion Gap 4 (5-15); Aspartate Aminotransferase 13 U/L (13-40); BUN/Creatinine Ratio 6.2 (10.0-20.0); Bilirubin, Total 0.2 mg/dL (0.2-1.0); Blood Urea Nitrogen 5 mg/dL (9-23); Calcium 9.3 mg/dL (8.7-10.4); Carbon Dioxide 26 mmol/L (20-30); Chloride 107 mmol/L (98-107); Glucose 77 mg/dL (74-106); Lipase 21 U/L (12-53); Potassium 4.4 mmol/L (3.5-5.1); Sodium 137 mmol/L (136-145); Total Protein 6.5 g/dL (5.7-8.2)
[2023-11-21] MEDS: IOHEXOL 300 MG/ML 100ML BOTTLE IJ ONE (19:07)
[2023-11-21 19:45] VITALS: BP 119/83; PULSE 91; RESP 13; TEMP 98.2; O2SAT 99
== END 2023-11-21 19:53 | disposition home or self-care (01) ==
LOC: ER 14:08
DX: K94.21 Gastrostomy hemorrhage (principal); R10.2 Pelvic and perineal pain; F17.210 Nicotine dependence, cigarettes, uncomplicated; J45.909 Unspecified asthma, uncomplicated; K21.9 Gastro-esophageal reflux disease without esophagitis; Z90.710 Acquired absence of both cervix and uterus
CPT/HCPCS: 36415; 74177; 80053; 81001; 83605; 83690; 84702; 85025; 99285; Q9967

== ENCOUNTER 2024-10-02 20:00 | Inpatient (IN) | payer MEDICAID ==
[~2024-10-02] VITALS: Ht 170.2 cm; Wt 86.4 kg
--- NOTE | 2024-10-02 21:45 | ED.PDOC ---
History of Present Illness HPI Comments 38 y/o F, with a Hx of anemia, uterine and cervical CA s/p hysterectomy, GERD, chronic gastroparesis and pain syndrome, J-tube placement, ovarian cysts, and tobacco use, presents with c/o J-tube dislodgement with associated abdominal pain, nausea, vomiting, rectal bleeding, and melena, today. Patient reports on her J-tube becoming dislodged after hearing the "membrane popped out," earlier, this evening, unprovoked, and other remaining symptoms ensuing afterwards. She comments on contacting her GI specialist, Jett Woods, that placed tube, last time, 2x months ago for her gastroparesis, and being advised to come to the ED for replacement. Patient admits to Hx of J-tube replacement multiple times in the past and having a temporary G-tube placed instead prior to being discharged and going to her GI specialist's main hospital in [place], [place], for proper J- tube replacement. She denies having any hematemesis, diarrhea, fever, chills, or other associated symptoms or modifiers at this time. Chief Complaint: Tube Replacement Time Seen by MD: 21:00 Primary Care Provider: AGUEDA Reviewed Notes: Nurses Notes, Medications, Allergies Allergies: Coded Allergies: Morphine (Verified Allergy, Severe, RASH, 10/22/15) Penicillin G (Verified Allergy, Severe, RASH, 10/22/15) Home Meds Reported Medications Oxycodone W/ Acetaminophen (Percocet 5/325MG) 1 Tab Tb, 1 TAB PO QID, #120 TAB 07/21/23 Amitriptyline HCl (Amitriptyline Hydrochlori) 100 Mg Tab, PO 07/21/23 Hydroxyzine Hcl (Hydroxyzine Hcl) Unknown Strength Tab, PO for 30 Days, MG 02/19/23 Sertraline Hcl (Zoloft) Unknown Strength Tab, PO DAILY, #30 TAB 2 Refills 02/19/23 Ferrous Sulfate (Iron) Unknown Strength Tab, PO, TAB 02/19/23 Cholecalciferol (VITAMIN D3) Unknown Strength Tab, PO DAILY, #30 TAB 5 Refills 02/19/23 Cariprazine Hydrochloride (Vraylar) 1.5 Mg Cap, PO, CAP 01/02/23 Information Source: Patient Mode of Arrival: Ambulatory Severity: Moderate Timing: Hours Duration: Since onset Prehospital treatment: None Past Medical History PAST MEDICAL HISTORY: Anemia, Asthma, Cancer (uterine and cervical s/p hysterectomy ), Depression, GERD Past Medical History (Other): gastroparesis, chronic chronic pain syndrome Surgical History: Hysterectomy Surgical History (Other): J-tube placement MANAGER REGISTRATION History: Ovarian Cysts, Other Family History Family History: Unknown Social History Smoker: Cigarettes Alcohol: Denies ETOH Use Drugs: Denies Drug Use Lives In: Home Gastrointestinal: reports: abdominal pain, melena, rectal bleeding, others (J- tube dislodgement ) All Other Systems: Reviewed and Negative (negative unless otherwise stated above or in HPI) Physical Exam General Appearance: No Apparent Distress, Normal HEENT: Normal ENT Inspection, Pharynx Normal, TMs Normal Neck: Full Range of Motion, Non-Tender, Normal, Normal Inspection Respiratory: Chest Non-Tender, Lungs Clear, No Accessory Muscle Use, No Re spiratory Distress, Normal Breath Sounds Cardiovascular: No Edema, No JVD, No Murmur, No Gallop, Normal Peripheral Pulses, Regular Rate/Rhythm Breast Exam: Deferred Gastrointestinal: No Organomegaly, Non Tender, No Pulsatile Mass, Normal Bowel Sounds, Soft, Other (J-tube in place ) Genitalia: Deferred Pelvic: Deferred Rectal: Deferred Extremities: No calf tenderness, Normal capillary refill, Normal inspection, Normal range of motion, Non-tender, No pedal edema Musculoskeletal : Apperance: Normal Neurologic: Alert, 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 Was a procedure done?: No Differential Dx Considerations may include: J-tube dislodgement, post-op complication, upper GI bleed, lower GI bleed, hemorrhoids X-Ray, Labs, Meds, VS Vital Signs Date Time Temp Pulse Resp B/P (MAP) Pulse Ox O2 Delivery O2 Flow Rate FiO2 10/02/24 23:16 87 18 100 Room Air 10/02/24 23:16 98.8 87 18 106/72 (83) 100 98.8 10/02/24 20:29 98.7 107 17 117/79 (92) 97 Lab Test 10/02/24 21:40 Range/Units White Blood Count 8.8 4.4-10.8 10^3/uL Red Blood Count 4.42 4.0-5.20 10^6/uL Hemoglobin 13.8 12.2-16.2 g/dL Hematocrit 40.3 36.0-46.0 % Mean Corpuscular Volume 91.0 80.0-100.0 fL Mean Corpuscular Hemoglobin 31.2 28.0-32.0 pg Mean Corpuscular Hemoglobin Concent 34.3 32.0-36.0 g/dL Red Cell Distribution Width 13.2 11.8-14.3 % Platelet Count 300 140-450 10^3/uL Mean Platelet Volume 8.6 6.9-10.8 fL Neutrophils (%) (Auto) 57.6 37.0-80.0 % Lymphocytes (%) (Auto) 30.8 10.0-50.0 % Monocytes (%) (Auto) 9.0 0.0-12.0 % Eosinophils (%) (Auto) 1.4 0.0-7.0 % Basophils (%) (Auto) 1.2 0.0-2.0 % Neutrophils # (Auto) 5.1 1.6-8.6 10 ^3/uL Lymphocytes # (Auto) 2.7 0.4-5.4 10 ^3/uL Monocytes # (Auto) 0.8 0-1.3 10 ^3/uL Eosinophils # (Auto) 0.1 0-0.8 10 ^3/uL Basophils # (Auto) 0.1 0-0.2 10 ^3/uL Nucleated Red Blood Cells 0.1 % Sodium Level 138 136-145 mmol/L Potassium Level 3.8 3.5-5.1 mmol/L Chloride Level 107 98-107 mmol/L Carbon Dioxide Level 26 20-31 mmol/L Anion Gap 5 5-15 Blood Urea Nitrogen 7 L 9-23 mg/dL Creatinine 0.98 0.550-1.02 mg/dL Glomerular Filtration Rate Calc 76 >90 mL/min BUN/Creatinine Ratio 7.1 L 10.0-20.0 Serum Glucose 95 74-106 mg/dL Calcium Level 9.6 8.7-10.4 mg/dL [facility] [id number] [facility] [address] Ph: [phone] DIAGNOSTIC IMAGING Diagnostic Imaging Report : [id number] Signed with Addenda PATIENT: SASKIA GARRISON ACCT: [id number] UNIT: [id number] : 1985 LOC: ER ROOM / BED: / AGE / SEX: 38 / F ADM STATUS: REG ER SERVICE [id number] ORDERING PHYSICIAN: AURELIO ARAYA MD PROCEDURE(s): ABPLIV - CT AB PEL WITH IV CON ONLY REASON: abdominal pain, black stool, pain with j tube ORDER NUMBER(s): [id number], ACCESSION NUMBER(s): [id number] ADDENDUM ADDENDUM # 1 HS:Y ORIGINAL REPORT Exam: CT CT AB PEL WITH IV CON ONLY History: abdominal pain, black stool, pain with j tube Comparison Study: None available at time of dictation. Contrast: Type of contrast: Omnipaque 300 Contrast injected: 100 mL Contrast wasted: 0 TECHNIQUE: A digital pesticide applicator image was obtained. During the uneventful, intravenous administration of contrast material, multislice data acquisition was obtained through the abdomen and pelvis. The data set was subsequently reconstructed into axial images. Images were reviewed on a work station using a combination of axial and multiplanar using a variety of window levels and settings. Radiation Dose Information: CT Dose: CTDI volume is 15.79 mGy. Dose-length product is 918.72 mGy*cm FINDINGS: Lung Bases: No acute or significant lung base finding. Normal heart size. No pleural or pericardial effusion. Liver: The liver is normal in size. No focal lesions. Normal hepatic vascular enhancement. Gallbladder and Biliary Tree: Unremarkable Spleen: Unremarkable Pancreas: The pancreas is normal in appearance without focal lesions or abnormal enhancement. Adrenal Glands: Unremarkable Kidneys: Kidneys demonstrate normal symmetric enhancement without focal lesions, calculi or hydronephrosis. Bladder: Unremarkable Bowel: The stomach is grossly normal in appearance. Small bowel and colon are normal in caliber and distribution. Percutaneous tube in the jejunum. No free air no free fluid The appendix is not visualized; however, no secondary findings of acute appendicitis identified. Ascites: Absent Lymphadenopathy: No mesenteric, retroperitoneal or periportal lymphadenopathy. Abdominal Wall and Mesentery: Unremarkable. Vasculature: The visualized abdominal aorta is normal in size and caliber. Abdominal and pelvic vessels demonstrate normal enhancement. Pelvic Organs: Unremarkable Musculoskeletal: No aggressive focal bony lesions, acute fractures or d islocation. Soft tissues: Unremarkable. IMPRESSION: 1. No acute abnormality in the abdomen or pelvis. 2. Jejunal tube in place no free air no free fluid. 3. No findings to suggest bowel obstruction. 4. All CT scans at this medical facility are performed using dose modulation techniques as appropriate to a performed exam including the following: Automated exposure control was utilized; adjustment of the MA and/or KV according to patient size; and use of iterative reconstruction technique. ATED BY: JOHN CHANG Jr., DO DICTATED DATE/TIME: 10/02/242335 SIGNED BY: JOHN CHNAG Jr., DO SIGNED DATE/TIME: 10/02/242335 CC: Exam: CT CT AB PEL WITH IV CON ONLY History: abdominal pain, black stool, pain with j tube Comparison Study: None available at time of dictation. Contrast: Type of contrast: Omnipaque 300 Contrast injected: 100 mL Contrast wasted: 0 TECHNIQUE: A digital pesticide applicator image was obtained. During the uneventful, intravenous administration of contrast material, multislice data acquisition was obtained through the abdomen and pelvis. The data set was subsequently reconstructed into axial images. Images were reviewed on a work station using a combination of axial and multiplanar using a variety of window levels and settings. Radiation Dose Information: CT Dose: CTDI volume is 15.79 mGy. Dose-length product is 918.72 mGy*cm FINDINGS: Lung Bases: No acute or significant lung base finding. Normal heart size. No pleural or pericardial effusion. Liver: The liver is normal in size. No focal lesions. Normal hepatic vascular enhancement. Gallbladder and Biliary Tree: Unremarkable Spleen: Unremarkable Pancreas: The pancreas is normal in appearance without focal lesions or abnormal enhancement. Adrenal Glands: Unremarkable Kidneys: Kidneys demonstrate normal symmetric enhancement without focal lesions, calculi or hydronephrosis. Bladder: Unremarkable Bowel: The stomach is grossly normal in appearance. Small bowel and colon are normal in caliber and distribution. Percutaneous tube in the jejunum. No free air no free fluid The appendix is not visualized; however, no secondary findings of acute appendicitis identified. Ascites: Absent Lymphadenopathy: No mesenteric, retroperitoneal or periportal lymphadenopathy. Abdominal Wall and Mesentery: Unremarkable. Vasculature: The visualized abdominal aorta is normal in size and caliber. Abdominal and pelvic vessels demonstrate normal enhancement. Pelvic Organs: Unremarkable Musculoskeletal: No aggressive focal bony lesions, acute fractures or dislocation. Soft tissues: Unremarkable. IMPRESSION: 1. No acute abnormality in the abdomen or pelvis. 2. Jejunal tube in place no free air no free fluid. 3. No findings to suggest bowel obstruction. 4. All CT scans at this medical facility are performed using dose modulation t echniques as appropriate to a performed exam including the following: Automated exposure control was utilized; adjustment of the MA and/or KV according to patient size; and use of iterative reconstruction technique. ATED BY: JOHN CHANG Jr., DO DICTATED DATE/TIME: 10/02/242321 SIGNED BY: JOHN CHANG Jr., SIGNED DATE/TIME: 10/02/242321 CC: Time of 1ST Reevaluation: 21:30 Reevaluation 1ST: Unchanged Patient Education/Counseling: Diagnosis, Treatment Family Education/Counseling: No Family Present Additional Information - I reviewed the following notes from patient's past medical encounters: 05/17/24, 11/21/23, 07/20/23 ED physician note; 07/20/23 admission discharge summary - The following tests were ordered, and results were reviewed by me: CBC, BMP - I discussed treatments and results with medical personnel and: GI specialist Departure 1 Departure Time of Disposition: 00:05 (Patient with J-tube dysfunction. We will admit patient for GI consult and possible J-tube replacement) Impression: Primary Impression: Malfunctioning jejunostomy tube Disposition: ADMITTED INPATIENT Admit to: Med Surg Condition: Serious Critical Care Note Critical Care Time?: No Stability Stability form required: No Heart Score Heart Score: Heart Score Response (Comments) Value History N/A 0 EKG N/A 0 Age N/A 0 Risk Factors N/A 0 Troponin N/A 0 Total 0 I personally scribed for AURELIO ARAYA MD ([email or web address]) on 10/02/24 at 21:45. Electronically submitted by Andrew Steve ([email or web address]). I personally scribed for AURELIO ARAYA MD ([email or web address]) on 10/03/24 at 00:03. Electronically submitted by Andrew Steve [email or web address]). AURELIO ARAYA MD Oct 02, 2024 21:45
[2024-10-02 21:56] LABS: Basophils # (auto) 0.1 10 ^3/uL (0-0.2); Basophils % (auto) 1.2 % (0.0-2.0); Eosinophils # (auto) 0.1 10 ^3/uL (0-0.8); Eosinophils % (auto) 1.4 % (0.0-7.0); Hematocrit 40.3 % (36.0-46.0); Hemoglobin 13.8 g/dL (12.2-16.2); Lymphocytes # (auto) 2.7 10 ^3/uL (0.4-5.4); Lymphocytes % (auto) 30.8 % (10.0-50.0); Mean Corpuscular Hemoglobin 31.2 pg (28.0-32.0); Mean Corpuscular Hgb Conc. 34.3 g/dL (32.0-36.0); Monocytes # (auto) 0.8 10 ^3/uL (0-1.3); Neutrophils # (auto) 5.1 10 ^3/uL (1.6-8.6); Neutrophils % (auto) 57.6 % (37.0-80.0); Nucleated Red Blood Cells % 0.1 %; Platelet Count (auto) 300 10^3/uL (140-450); Red Blood Cells 4.42 10^6/uL (4.0-5.20); Red Cell Distribution Width 13.2 % (11.8-14.3); White Blood Cell 8.8 10^3/uL (4.4-10.8)
[2024-10-02 22:07] LABS: Chloride 107 mmol/L (98-107); Potassium 3.8 mmol/L (3.5-5.1); Sodium 138 mmol/L (136-145)
[2024-10-02 22:08] LABS: Calcium 9.6 mg/dL (8.7-10.4)
[2024-10-02 22:13] LABS: BUN/Creatinine Ratio 7.1 (10.0-20.0); Blood Urea Nitrogen 7 mg/dL (9-23); Glucose 95 mg/dL (74-106)
[2024-10-02] MEDS: IOHEXOL 300 MG/ML 100ML BOTTLE IJ ONE (22:58)
[2024-10-02 22:59] LABS: Anion Gap 5 (5-15); Carbon Dioxide 26 mmol/L (20-31)
--- NOTE | 2024-10-02 23:25 | DVH ---
Exam: CT CT AB PEL WITH IV CON ONLY History: abdominal pain, black stool, pain with j tube Comparison Study: None available at time of dictation. Contrast: Type of contrast: Omnipaque 300 Contrast injected: 100 mL Contrast wasted: 0 TECHNIQUE: A digital personal companion image was obtained. During the uneventful, intravenous administration of c ontrast material, multislice data acquisition was obtained through the abdomen and pelvis. The data s et was subsequently reconstructed into axial images. Images were reviewed on a work station using a c ombination of axial and multiplanar using a variety of window levels and settings. Radiation Dose Information: CT Dose: CTDI volume is 15.79 mGy. Dose-length product is 918.72 mGy*cm FINDINGS: Lung Bases: No acute or significant lung base finding. Normal heart size. No pleural or pericardial effusion. Liver: The liver is normal in size. No focal lesions. Normal hepatic vascular enhancement. Gallbladder and Biliary Tree: Unremarkable Spleen: Unremarkable Pancreas: The pancreas is normal in appearance without focal lesions or abnormal enhancement. Adrenal Glands: Unremarkable Kidneys: Kidneys demonstrate normal symmetric enhancement without focal lesions, calculi or hydroneph rosis. Bladder: Unremarkable Bowel: The stomach is grossly normal in appearance. Small bowel and colon are normal in caliber and d istribution. Percutaneous tube in the jejunum. No free air no free fluid The appendix is not visuali zed; however, no secondary findings of acute appendicitis identified. Ascites: Absent Lymphadenopathy: No mesenteric, retroperitoneal or periportal lymphadenopathy. Abdominal Wall and Mesentery: Unremarkable. Vasculature: The visualized abdominal aorta is normal in size and caliber. Abdominal and pelvic vess els demonstrate normal enhancement. Pelvic Organs: Unremarkable Musculoskeletal: No aggressive focal bony lesions, acute fractures or dislocation. Soft tissues: Unremarkable. IMPRESSION: 1. No acute abnormality in the abdomen or pelvis. 2. Jejunal tube in place no free air no free fluid. 3. No findings to suggest bowel obstruction. 4. All CT scans at this medical facility are performed using dose modulation techniques as appropriate to a performed exam including the following: Automated exposure control was utilized; adjustment of t he MA and/or KV according to patient size; and use of iterative reconstruction technique.
[2024-10-03] VITALS (7 sets, daily range): BP systolic 96–115; BP diastolic 59–67; PULSE 68–94; RESP 15–20; TEMP 97.4–98.1; O2SAT 92–98
[2024-10-03] MEDS ORDERED: TEMAZEPAM 15 MG CAP PO PRN (01:30)
[2024-10-03] MEDS: SODIUM CHLORIDE 0.9% 1,000 ML IV ONE (01:30)
[2024-10-03] MEDS ORDERED: ACETAMINOPHEN 325 MG TAB PO PRN (01:30)
--- NOTE | 2024-10-03 01:51 | DVHHP2 ---
History of Present Illness Reason for Visit: Feeding tube malfunction History of Present Illness 38-year-old female presents for evaluation of feeding tube malfunction. Patient with a history of gastroparesis presents for evaluation of malfunctioning J- tube. She states tube feels fluids in the has been leaking around the stoma site. She also reports mild tenderness around tube site. Denies purulent discharge. No fever or chills. No nausea or vomiting. No other acute complaints reported. Past Medical History Asthma, cancer, depression, encouraged Past Surgical History Hysterectomy and J-tube Family History Noncontributory Smoke: No ALCOHOL: none Drugs: None Lives: with Family Review of Systems Review of Systems Review of systems are currently negative otherwise addressed in HPI. Allergies: Coded Allergies: Morphine (Verified Allergy, Severe, RASH, 10/22/15) Penicillin G (Verified Allergy, Severe, RASH, 10/22/15) Medications Current Medications Medications Dose Ordered Sig/Saúl Route Start Time Stop Time Status Last Admin Dose Admin Acetaminophen/ Hydrocodone Bitart 1 tab Q4HP PRN PO 10/03/24 01:30 UNV Temazepam 15 mg QHSP PRN PO 10/03/24 01:30 UNV Ondansetron HCl 4 mg Q4HP PRN IV 10/03/24 01:30 UNV Acetaminophen 650 mg Q6HP PRN PO 10/03/24 01:30 UNV Exam Vital Signs Vital Signs Date Time Temp Pulse Resp B/P (MAP) Pulse Ox O2 Delivery O2 Flow Rate FiO2 10/02/24 23:16 87 18 100 Room Air 10/02/24 23:16 98.8 106/72 (83) 98.8 Exam Gen: 38-year-old female in no apparent distress Skin: Warm, dry, normal color and texture, no rash. HEENT: Normocephalic atraumatic, mucous membranes moist and pink. Neck: Cervical and supraclavicular nodes normal without enlargement, trachea is midline, thyroid gland is normal without masses. Pulmonary: Clear to auscultation and percussion bilaterally. Cardiac: Regular rate and rhythm. No murmur Abdomen: Soft, nontender, nondistended, bowel sounds present all 4 quadrants, no guarding, no rigidity, no organomegaly. Extremities: No cyanosis, clubbing, no edema Neuro: Cranial nerves II through XII grossly intact, normal affect and speech, no focal motor deficits. Labs/Xrays ORDERING PHYSICIAN: AURELIO ARAYA MD PROCEDURE(s): ABPLIV - CT AB PEL WITH IV CON ONLY REASON: abdominal pain, black stool, pain with j tube ORDER NUMBER(s): [id number], ACCESSION NUMBER(s): [id number] ADDENDUM ADDENDUM # 1 HS:Y ORIGINAL REPORT Exam: CT CT AB PEL WITH IV CON ONLY History: abdominal pain, black stool, pain with j tube Comparison Study: None available at time of dictation. Contrast: Type of contrast: Omnipaque 300 Contrast injected: 100 mL Contrast wasted: 0 TECHNIQUE: A digital tobacco packer image was obtained. During the uneventful, intravenous administration of contrast material, multislice data acquisition was obtained through the abdomen and pelvis. The data set was subsequently r econstructed into axial images. Images were reviewed on a work station using a combination of axial and multiplanar using a variety of window levels and settings. Radiation Dose Information: CT Dose: CTDI volume is 15.79 mGy. Dose-length product is 918.72 mGy*cm FINDINGS: Lung Bases: No acute or significant lung base finding. Normal heart size. No pleural or pericardial effusion. Liver: The liver is normal in size. No focal lesions. Normal hepatic vascular enhancement. Gallbladder and Biliary Tree: Unremarkable Spleen: Unremarkable Pancreas: The pancreas is normal in appearance without focal lesions or abnormal enhancement. Adrenal Glands: Unremarkable Kidneys: Kidneys demonstrate normal symmetric enhancement without focal lesions, calculi or hydronephrosis. Bladder: Unremarkable Bowel: The stomach is grossly normal in appearance. Small bowel and colon are normal in caliber and distribution. Percutaneous tube in the jejunum. No free air no free fluid The appendix is not visualized; however, no secondary findings of acute appendicitis identified. Ascites: Absent Lymphadenopathy: No mesenteric, retroperitoneal or periportal lymphadenopathy. Abdominal Wall and Mesentery: Unremarkable. Vasculature: The visualized abdominal aorta is normal in size and caliber. Abdominal and pelvic vessels demonstrate normal enhancement. Pelvic Organs: Unremarkable Musculoskeletal: No aggressive focal bony lesions, acute fractures or dislocation. Soft tissues: Unremarkable. IMPRESSION: 1. No acute abnormality in the abdomen or pelvis. 2. Jejunal tube in place no free air no free fluid. 3. No findings to suggest bowel obstruction. 4. All CT scans at this medical facility are performed using dose modulation techniques as appropriate to a performed exam including the following: Automated exposure control was utilized; adjustment of the MA and/or KV according to patient size; and use of iterative reconstruction technique. ATED BY: JOHN WOLFF Jr., DO DICTATED DATE/TIME: 10/02/242335 SIGNED BY: JOHN WOLFF Jr., DO SIGNED DATE/TIME: 10/02/242335 CC: Exam: CT CT AB PEL WITH IV CON ONLY History: abdominal pain, black stool, pain with j tube Comparison Study: None available at time of dictation. Contrast: Type of contrast: Omnipaque 300 Contrast injected: 100 mL Contrast wasted: 0 TECHNIQUE: A digital tobacco packer image was obtained. During the uneventful, intravenous administration of contrast material, multislice data acquisition was obtained through the abdomen and pelvis. The data set was subsequently recons tructed into axial images. Images were reviewed on a work station using a combination of axial and multiplanar using a variety of window levels and settings. Radiation Dose Information: CT Dose: CTDI volume is 15.79 mGy. Dose-length product is 918.72 mGy*cm FINDINGS: Lung Bases: No acute or significant lung base finding. Normal heart size. No pleural or pericardial effusion. Liver: The liver is normal in size. No focal lesions. Normal hepatic vascular enhancement. Gallbladder and Biliary Tree: Unremarkable Spleen: Unremarkable Pancreas: The pancreas is normal in appearance without focal lesions or abnormal enhancement. Adrenal Glands: Unremarkable Kidneys: Kidneys demonstrate normal symmetric enhancement without focal lesions, calculi or hydronephrosis. Bladder: Unremarkable Bowel: The stomach is grossly normal in appearance. Small bowel and colon are normal in caliber and distribution. Percutaneous tube in the jejunum. No free air no free fluid The appendix is not visualized; however, no secondary findings of acute appendicitis identified. Ascites: Absent Lymphadenopathy: No mesenteric, retroperitoneal or periportal lymphadenopathy. Abdominal Wall and Mesentery: Unremarkable. Vasculature: The visualized abdominal aorta is normal in size and caliber. Abdominal and pelvic vessels demonstrate normal enhancement. Pelvic Organs: Unremarkable Musculoskeletal: No aggressive focal bony lesions, acute fractures or dislocation. Soft tissues: Unremarkable. IMPRESSION: 1. No acute abnormality in the abdomen or pelvis. 2. Jejunal tube in place no free air no free fluid. 3. No findings to suggest bowel obstruction. 4. All CT scans at this medical facility are performed using dose modulation techniques as appropriate to a performed exam including the following: Automated exposure control was utilized; adjustment of the MA and/or KV according to patient size; and use of iterative reconstruction technique. Labs Test 10/02/24 21:40 Range/Units White Blood Count 8.8 4.4-10.8 10^3/uL Red Blood Count 4.42 4.0-5.20 10^6/uL Hemoglobin 13.8 12.2-16.2 g/dL Hematocrit 40.3 36.0-46.0 % Mean Corpuscular Volume 91.0 80.0-100.0 fL Mean Corpuscular Hemoglobin 31.2 28.0-32.0 pg Mean Corpuscular Hemoglobin Concent 34.3 32.0-36.0 g/dL Red Cell Distribution Width 13.2 11.8-14.3 % Platelet Count 300 140-450 10^3/uL Mean Platelet Volume 8.6 6.9-10.8 fL Neutrophils (%) (Auto) 57.6 37.0-80.0 % Lymphocytes (%) (Auto) 30.8 10.0-50.0 % Monocytes (%) (Auto) 9.0 0.0-12.0 % Eosinophils (%) (Auto) 1.4 0.0-7.0 % Basophils (%) (Auto) 1.2 0.0-2.0 % Neutrophils # (Auto) 5.1 1.6-8.6 10 ^3/uL Lymphocytes # (Auto) 2.7 0.4-5.4 10 ^3/uL Monocytes # (Auto) 0.8 0-1.3 10 ^3/uL Eosinophils # (Auto) 0.1 0-0.8 10 ^3/uL Basophils # (Auto) 0.1 0-0.2 10 ^3/uL Nucleated Red Blood Cells 0.1 % Sodium Level 138 136-145 mmol/L Potassium Level 3.8 3.5-5.1 mmol/L Chloride Level 107 98-107 mmol/L Carbon Dioxide Level 26 20-31 mmol/L Anion Gap 5 5-15 Blood Urea Nitrogen 7 L 9-23 mg/dL Creatinine 0.98 0.550-1.02 mg/dL Glomerular Filtration Rate Calc 76 >90 mL/min BUN/Creatinine Ratio 7.1 L 10.0-20.0 Serum Glucose 95 74-106 mg/dL Calcium Level 9.6 8.7-10.4 mg/dL Assessment/Plan Assessment/Plan Assessment J-tube malfunction History of gastroparesis Plan Admit the patient to [facility] to the hospitalist Radiology consultation NPO Maintenance IV fluids Pain management Continue treatment per orders. Plan discussed with: Patient My Orders Orders - YENY WHITE Procedure Category Date Status Time Admit ADMIT 10/03/24 Transmitted 01:27 * Radiologist Consult CONS 10/03/24 Transmitted 01:27 Hydrocodone-Acet PHA 10/03/24 Logged 5/325mg Tab ([place] 01:30 Temazepam (Restoril) PHA 10/03/24 Logged 01:30 Ondansetron Hcl PHA 10/03/24 Logged (Zofran) 01:30 Npo (Nothing By DIET 10/03/24 Transmitted Mouth) Diet Breakfast Condition: Stable RAMON 10/03/24 In Process 01:27 Acetaminophen Tablet PHA 10/03/24 Logged (Tylenol Tablet) 01:30 Bedrest With Bathroom RAMON 10/03/24 In Process Privileg 01:27 PTPTT LAB 10/03/24 Logged 01:27 Sodium Chloride 0.9% PHA 10/03/24 Logged 01:30 Date of Service: Oct 03, 2024 Billing Provider: YENY WHITE Common Visit Codes: [id number] INP/OBS CARE (MOD) YENY WHITE Oct 03, 2024 01:51
[2024-10-03 02:17] LABS: INR 0.92 (0.9-1.15); Partial Thromboplastin Time 27.8 SEC (24.5-34.5); Prothrombin Time 9.8 sec (9.3-11.8)
[2024-10-03] MEDS: KETOROLAC TROMETH 30 MG/ML 1ML VIAL IV ONE (04:58)
[2024-10-03] MEDS: HYDROcodone-ACET 5/325MG TAB PO PRN (07:37)
[2024-10-03] MEDS ORDERED: KETAMINE 50mg/ML 10ml Vial (500mg/10ml) IV ONE (11:39)
[2024-10-03] MEDS: ONDANSETRON HCL 4 MG/2 ML VIAL IV PRN (12:30)
--- NOTE | 2024-10-03 13:14 | DVHPN2 ---
Subjective Patient reports generalized body pain. Reviewed: Care Plan, H&P, Labs, Medications, Previous Orders Changes from previous H/P or p: No Changes General: Per HPI Objective Vitals Vital Signs Date Time Temp Pulse Resp B/P (MAP) Pulse Ox O2 Delivery O2 Flow Rate FiO2 10/03/24 12:03 98.1 82 20 115/62 (79) 92 98.1 10/03/24 07:25 Room Air* 0 21 Intake/Output Intake and Output 10/03/24 07:00 Intake Total 375 ml Balance 375 ml Intake IV Total 375 ml General Appearance: Alert, Oriented X3, Cooperative, No acute distress HEENT: Atraumatic, PERRLA Lungs: Clear to auscultation, Normal air movement Cardiovascular: Normal S1, Normal S2 Abdomen: Normal bowel sounds, Soft, No tenderness, No hepatospenomegaly Musculoskeletal: Normal sensory function, Normal motor function Neuro: Normal gait, Normal speech Skin: Dry, Intact Psych/Mental Status: Mental status NL, Mood NL Medications Current Medications Medications Dose Ordered Sig/Saúl Route Start Time Stop Time Status Last Admin Dose Admin Acetaminophen/ Hydrocodone Bitart 1 tab Q4HP PRN PO 10/03/24 01:30 10/03/24 12:23 1 TAB Temazepam 15 mg QHSP PRN PO 10/03/24 01:30 Ondansetron HCl 4 mg Q4HP PRN IV 10/03/24 01:30 10/03/24 12:30 4 MG Acetaminophen 650 mg Q6HP PRN PO 10/03/24 01:30 Laboratory Results Laboratory Tests 10/02/24 21:40 Chemistry Test 10/02/24 21:40 Calcium Level 9.6 mg/dL (8.7-10.4) Coagulation Test 10/03/24 01:41 Prothrombin Time 9.8 sec (9.3-11.8) Prothrombin Time INR 0.92 (0.9-1.15) Activated Partial Thromboplast Time 27.8 SEC (24.5-34.5) Labs and/or images reviewed: Labs reviewed by me, Image(s) reviewed by me Assessment/Plan Assessment/Plan Impression: -malfunctioning J-tube -gastroparesis -depression -asthma -GERD -history of uterine cancer -chronic pain syndrome Plan: -IV hydration -pain management -GI consultation: Discussed case with Dr. Woods, with plans for possible replacement today -NPO status -antiemetics Total time spent with patient discussing and formulating plan of care: 35 minutes. This medical document was created using an electronic medical record system with [employer] dictation system. Although this document has been carefully reviewed, there may still be some phonetic and typographical errors. These areas are purely typographical due to imperfections of the software programs, and do not reflect any compromise in the patient's medical care. Plan discussed with: Patient, Other (RN) My Orders Orders - NAVEED COELHO NP Procedure Category Date Status Time *Consult Dr. James Woods CONS 10/03/24 Transmitted 10:46 Hydromorphone PHA 10/03/24 Verified Injection (Dilaudid 13:15 Metoclopramide PHA 10/03/24 Verified Injection (Reglan 13:15 Date of Service: Oct 03, 2024 Billing Provider: NAVEED COELHO NP Common Visit Codes: [id number] INP/OBS CARE(HIGH) NAVEED COELHO NP Oct 03, 2024 13:14
[2024-10-03] MEDS ORDERED: HYDROmorphone HCL 2 MG/ML VL/or syr IV PRN ×2 (13:15→16:00)
[2024-10-03] MEDS ORDERED: METOCLOPRAMIDE HCL 5MG/ml INJ 2ml VIAL IV PRN (13:15)
--- NOTE | 2024-10-03 14:47 | DVHINCON2 ---
GI Consult Consult Note Date of Consultation: 10/03/24 Chief Complaint: leaky PGJ Referring Physician: Tal Gore NP H&P: 38 y.o. woman with leaky PGJ. She uses it because she has gastroparesis. NO abdominal pain, nausea, vomiting, melena and blood in stool. Past Medical History: h/o uterine cancer, anemia, pre-DM, neuropathy, hyperlipidemia. Past Surgical History: hysterectomy, D&C, PGJ Social History: + smoking. Denies drinking ETOH and use of illegal drugs. Family History: Dad had stomach and colon cancer Review of Systems: Constitutional: no fever, chill, weight loss HEENT: no eye pain, no hearing loss, no oral lesion, no scleral icterus Heart: no chest pain, no chest pressure Lung: no cough, no dyspnea with exertion Abdomen: see HPI : no pain with urination, normal appearing urine Musculoskeletal: no joint pain, no muscle pain Neurological: no seizure, no loss of sensation, no weakness in extremities Pysch: no depression, no anxiety Derm: no rash, no jaundice Physical exam: General: NAD, AAOX3 HEENT: PERRL, no scleral icterus, normal hearing, gums without lesions or bleeding, oropharynx clear without erythema or exudate. Neck: Supple without enlargement of the thyroid, or lymphadenopathy. Chest: Normal size and shape, no tenderness, lung baum clear to auscultation and percussion, nonlabored breathing. Heart: RRR, no murmur Abdomen: non-distended, no tenderness to palpation, +BS, no hepatosplenomegaly, PGJ in the LUQ Extremities: no edema, no cyanosis Neurological: CN II-XII intact, sensation intact in all extremities, 5+ strength in all extremities, no asterixis Skin: No rashes, No jaundice Labs: Laboratory Results Test 10/03/24 01:41 10/02/24 21:40 Prothrombin Time 9.8 sec (9.3-11.8) Prothrombin Time INR 0.92 (0.9-1.15) Activated Partial Thromboplast Time 27.8 SEC (24.5-34.5) White Blood Count 8.8 10^3/uL (4.4-10.8) Red Blood Count 4.42 10^6/uL (4.0-5.20) Hemoglobin 13.8 g/dL (12.2-16.2) Hematocrit 40.3 % (36.0-46.0) Mean Corpuscular Volume 91.0 fL (80.0-100.0) Mean Corpuscular Hemoglobin 31.2 pg (28.0-32.0) Mean Corpuscular Hemoglobin Concent 34.3 g/dL (32.0-36.0) Red Cell Distribution Width 13.2 % (11.8-14.3) Platelet Count 300 10^3/uL (140-450) Mean Platelet Volume 8.6 fL (6.9-10.8) Neutrophils (%) (Auto) 57.6 % (37.0-80.0) Lymphocytes (%) (Auto) 30.8 % (10.0-50.0) Monocytes (%) (Auto) 9.0 % (0.0-12.0) Eosinophils (%) (Auto) 1.4 % (0.0-7.0) Basophils (%) (Auto) 1.2 % (0.0-2.0) Neutrophils # (Auto) 5.1 10 ^3/uL (1.6-8.6) Lymphocytes # (Auto) 2.7 10 ^3/uL (0.4-5.4) Monocytes # (Auto) 0.8 10 ^3/uL (0-1.3) Eosinophils # (Auto) 0.1 10 ^3/uL (0-0.8) Basophils # (Auto) 0.1 10 ^3/uL (0-0.2) Nucleated Red Blood Cells 0.1 % Sodium Level 138 mmol/L (136-145) Potassium Level 3.8 mmol/L (3.5-5.1) Chloride Level 107 mmol/L (98-107) Carbon Dioxide Level 26 mmol/L (20-31) Anion Gap 5 (5-15) Blood Urea Nitrogen 7 mg/dL (9-23) Creatinine 0.98 mg/dL (0.550-1.02) Glomerular Filtration Rate Calc 76 mL/min (>90) BUN/Creatinine Ratio 7.1 (10.0-20.0) Serum Glucose 95 mg/dL (74-106) Calcium Level 9.6 mg/dL (8.7-10.4) Beta HCG, Quantitative 0.4 mIU/mL (1.5-4.2) Other Laboratory Tests 10/02/24 21:40 Imaging: CT A/P: 1. No acute abnormality in the abdomen or pelvis. 2. Jejunal tube in place no free air no free fluid. 3. No findings to suggest bowel obstruction. Assessment: 38 y.o. woman with leaky PGJ. Plan: - Pt will be scheduled for an EGD with replacement of the PGJ. Pt was informed of the risks (bleeding, infection, perforation, reaction to sedation medications and cardiopulmonary arrest) and benefit and is agreeable to undergo the procedures. Date of Service: Oct 03, 2024 Billing Provider: ELENI LEBRON MD Common Visit Codes: [id number] INP/OBS CARE (MOD) ELENI LEBRON MD Oct 03, 2024 14:47
[2024-10-03] MEDS ORDERED: MIDAZOLAM HCL 2MG/2ML 2ml VIAL (1mg/ml) ONE (15:16)
[2024-10-03] MEDS ORDERED: fentaNYL CITRATE 100 MCG/2 ML VL ONE (15:16)
[2024-10-03] MEDS ORDERED: GLYCOPYRROLATE 0.2 MG/ML 1ML VIAL ONE (15:17)
[2024-10-03] MEDS ORDERED: PROPOFOL 10 MG/ML 20 ML IV ONE (15:17)
[2024-10-03] MEDS ORDERED: LIDOCAINE 2% (LOCAL ANESTH.) PF 5ml SDV ONE (15:17)
[2024-10-03] MEDS ORDERED: ONDANSETRON HCL 4 MG/2 ML VIAL ONE (15:17)
--- NOTE | 2024-10-03 15:44 | DVHOP2 ---
Operative Report DATE OF OPERATION: 10/03/24 PROCEDURE: Upper Endoscopy. PREOPERATIVE INDICATION: The patient is a 38 -year-old female undergoing endoscopy for malfunction PGJ. POSTOPERATIVE DIAGNOSES: 1. Successful replacement of PGJ PROCEDURE PERFORMED BY: James Woods SCOPE: Olympus videoendoscope. ASA CLASS: 3 PREOPERATIVE MEDICATIONS: MAC with Dr Brooks PROCEDURE IN DETAIL: After obtaining an informed consent, the patient was placed on left lateral decubitus position. The patient was then sedated with the above medications. A bite block was placed between her teeth. The endo scope was then passed through the oropharynx, into the esophagus, and through the stomach and pylorus up to the second and third part of the duodenum. The duodenum and stomach were normal in appearance. There was slight residual food in the duodenum. There was a PGJ in place. The old PGJ was removed and a new 22 Fr PGJ was inserted into the stomach and the distal end of the PGJ was inserted into the duodenum. The GEJ was normal in appearance at 35 cm. The esophagus was normal in appearance. The endoscope was then withdrawn. The patient tolerated the procedure well without difficulty. COMPLICATIONS : None SPECIMENS: None DISPOSITION: Transfer back to the floor PLAN: 1. Pt can start using the PGJ. 2. Pt can be d/c to home from GI prospective. JAMES WOODS MD Oct 03, 2024 15:44
[2024-10-03] MEDS: HYDROmorphone HCL 2 MG/ML VL/or syr IV ONE (15:53)
[2024-10-03] MEDS: ONDANSETRON HCL 4 MG/2 ML VIAL IV ONE (16:00)
[2024-10-03] MEDS: HYDROmorphone HCL 2 MG/ML VL/or syr IV PRN (16:03)
[2024-10-03 21:06] LABS: Urine Bacteria FEW /hpf (None Seen); Urine Blood Negative /uL (Negative); Urine Clarity Clear (Clear); Urine Color Yellow (Yellow); Urine Mucus FEW (None Seen); Urine Protein, UAD TRACE (Negative); Urine Specific Gravity > 1.050 (1.001-1.035); Urine Squamous Epithelial Cell FEW /hpf (<5); Urine Urobilinogen Normal (Negative); Urine WBC 1 /HPF (0-5)
[2024-10-04 01:00] VITALS: BP 109/47; PULSE 80; RESP 19; TEMP 97.7; O2SAT 91
[2024-10-04 05:00] VITALS: BP 106/65; PULSE 77; RESP 18; TEMP 97.6; O2SAT 100
[2024-10-04 08:52] VITALS: BP 90/51; PULSE 82; RESP 20; TEMP 97.8; O2SAT 96
--- NOTE | 2024-10-04 10:34 | DVHDS2 ---
Discharge Summary Date of Admission Oct 03, 2024 at 01:27 Date of Discharge: Oct 04, 2024 Admitting Diagnosis Malfunctioning GJ tube Labs/Diagnostic Data: Laboratory Results Test 10/03/24 13:30 10/03/24 01:41 10/02/24 21:40 Urine Color Yellow (Yellow) Urine Clarity Clear (Clear) Urine pH 6.0 (5.0-9.0) Urine Specific [place] > 1.050 (1.001-1.035) Urine Protein Trace (Negative) Urine Ketones Negative (Negative) Urine Blood Negative /uL (Negative) Urine Nitrite Negative (Negative) Urine Bilirubin Negative (Negative) Urine Urobilinogen Normal mg/dL (Negative) Urine Leukocyte Esterase Negative /uL (Negative) Urine RBC <1 /hpf (0 - 4) Urine Microscopic WBC 1 /HPF (0-5) Urine Squamous Epithelial Cells Few /hpf (<5) Urine Bacteria Few /hpf (None Seen) Urine Mucus Few (None Seen) Urine Glucose Normal mg/dL (Normal) Prothrombin Time 9.8 sec (9.3-11.8) Prothrombin Time INR 0.92 (0.9-1.15) Activated Partial Thromboplast Time 27.8 SEC (24.5-34.5) White Blood Count 8.8 10^3/uL (4.4-10.8) Red Blood Count 4.42 10^6/uL (4.0-5.20) Hemoglobin 13.8 g/dL (12.2-16.2) Hematocrit 40.3 % (36.0-46.0) Mean Corpuscular Volume 91.0 fL (80.0-100.0) Mean Corpuscular Hemoglobin 31.2 pg (28.0-32.0) Mean Corpuscular Hemoglobin Concent 34.3 g/dL (32.0-36.0) Red Cell Distribution Width 13.2 % (11.8-14.3) Platelet Count 300 10^3/uL (140-450) Mean Platelet Volume 8.6 fL (6.9-10.8) Neutrophils (%) (Auto) 57.6 % (37.0-80.0) Lymphocytes (%) (Auto) 30.8 % (10.0-50.0) Monocytes (%) (Auto) 9.0 % (0.0-12.0) Eosinophils (%) (Auto) 1.4 % (0.0-7.0) Basophils (%) (Auto) 1.2 % (0.0-2.0) Neutrophils # (Auto) 5.1 10 ^3/uL (1.6-8.6) Lymphocytes # (Auto) 2.7 10 ^3/uL (0.4-5.4) Monocytes # (Auto) 0.8 10 ^3/uL (0-1.3) Eosinophils # (Auto) 0.1 10 ^3/uL (0-0.8) Basophils # (Auto) 0.1 10 ^3/uL (0-0.2) Nucleated Red Blood Cells 0.1 % Sodium Level 138 mmol/L (136-145) Potassium Level 3.8 mmol/L (3.5-5.1) Chloride Level 107 mmol/L (98-107) Carbon Dioxide Level 26 mmol/L (20-31) Anion Gap 5 (5-15) Blood Urea Nitrogen 7 mg/dL (9-23) Creatinine 0.98 mg/dL (0.550-1.02) Glomerular Filtration Rate Calc 76 mL/min (>90) BUN/Creatinine Ratio 7.1 (10.0-20.0) Serum Glucose 95 mg/dL (74-106) Calcium Level 9.6 mg/dL (8.7-10.4) Beta HCG, Quantitative 0.4 mIU/mL (1.5-4.2) Other Laboratory Tests 10/02/24 21:40 Brief Hx & Hospital Course: History of Present Illness 38-year-old female presents for evaluation of feeding tube malfunction. Patient with a history of gastroparesis presents for evaluation of malfunctioning J- tube. She states tube feels fluids in the has been leaking around the stoma site. She also reports mild tenderness around tube site. Denies purulent discharge. No fever or chills. No nausea or vomiting. No other acute complaints reported. This hospitalization: Discussion was made with the patient was primary vending machine mechanic, Dr. Woods. Patient was taken to the GI lab for placement of new GJ tube. Patient has been cleared for discharge. Patient has been tolerating oral intake as well as using her new GJ tube while in the hospital. Patient will be discharged home without any new prescriptions. She was instructed to follow up with Dr. Kelly in 2-3 weeks. Physical examination General: Alert and Oriented x3. No acute distress. Well-nourished. Eyes: EOMI. Anicteric. HENT: Moist mucous membranes. Lungs: Clear to auscultation bilaterally. No accessory muscle use. Cardiovascular: Regular rate and rhythm. No murmur. No JVD. Abdomen: Soft, non-tender and non-distended. No palpable masses. Extremities: No edema. Non-tender. Skin: No rashes or lesions. Warm. Neurologic: No focal neurological deficits. CN II-XII grossly intact, but not individually tested. Psychiatric: Cooperative. Appropriate mood and affect. Total time spent with patient discussing and formulating plan of care: 35 minutes. This medical document was created using an electronic medical record system with [employer] system. Although this document has been carefully reviewed, there may still be some phonetic and typographical errors. These areas are purely typographical due to imperfections of the software programs, and do not reflect any compromise in the patient's medical care. Consults/Reason for consult Gastroenterology: Malfunctioning GJ tube Operations or Procedures 10/03/2024: Replacement of GJ tube Condition at Discharge: Fair Final Diagnosis/Problems List Malfunctioning J tube Secondary Diagnosis: -gastroparesis -depression -asthma -GERD -history of uterine cancer -chronic pain syndrome Discharge Disposition: Home Discharge Instruct/Medications Diet: Regular Activity: No Restrictions, As Tolerated Follow Up/Referral: Follow up with Dr. Woods in 2-3 weeks Medications: Continue all home medications 36 Discharge Statement: "Patient was advised to return to the ER or call 911 if any headaches, dizziness, shortness of breath, chest pain, abdominal pain, bleeding, fevers, or worsening of medical condition. Patient was counseled about treatment plan, medications, possible side effects, patientverbalized understanding. All questions were answered to the best of my ability. This discharge took greater then 30 minutes in planning, reviewing documentation, counseling the patient, and discussing with other team members." ASSESSMENT ASSESSMENT Assessment Malfunctioning J tube Date of Service: Oct 04, 2024 Billing Provider: NAVEED COELHO NP Common Visit Codes: [id number] DISCH DAY >30min NAVEED COELHO NP Oct 04, 2024 10:34
[2024-10-04 10:57] VITALS: TEMP 36.6
== END 2024-10-04 11:40 | disposition home or self-care (01) | DRG 252 ==
LOC: ER 20:00 → OVERFLOW 10-03 01:27 → EAST 10-03 13:20
PROVIDERS: ADMIT Nurse Practitioner Acute Care; ATTEND Nurse Practitioner Acute Care
PROC: 0DH63UZ Insertion of Feeding Device into Stomach, Percutaneous Approach (ICD-10-PCS; 2024-10-03)
PROC: 0DP68UZ Removal of Feeding Device from Stomach, Via Natural or Artificial Opening Endoscopic (ICD-10-PCS; principal; 2024-10-03 15:18)
DX: K94.13 Enterostomy malfunction (principal); E78.5 Hyperlipidemia, unspecified; F32.A Depression, unspecified; G89.4 Chronic pain syndrome; K21.9 Gastro-esophageal reflux disease without esophagitis; K31.84 Gastroparesis; J45.909 Unspecified asthma, uncomplicated; F17.210 Nicotine dependence, cigarettes, uncomplicated; Z85.42 Personal history of malignant neoplasm of other parts of uterus; Z88.5 Allergy status to narcotic agent; Z85.41 Personal history of malignant neoplasm of cervix uteri; Z90.710 Acquired absence of both cervix and uterus
CPT/HCPCS: 36415; 74177; 80048; 81001; 84702; 85025; 85610; 85730; G0378; J1885; J2003; J2250; J2405; J2704

== ENCOUNTER → 2025-03-29 | Day surgery (SDC) | payer MEDICAID ==
[2025-03-28 12:19] LABS: Hematocrit 40.8 % (36.0-46.0); Hemoglobin 13.8 g/dL (12.2-16.2); Mean Corpuscular Hemoglobin 30.1 pg (28.0-32.0); Mean Corpuscular Volume 89.4 fL (80.0-100.0); Nucleated Red Blood Cells % 0.1 %
[2025-03-28 12:27] LABS: Urine Protein, UAD Negative (Negative)
[2025-03-28 12:37] LABS: INR 0.95 (0.9-1.15); Partial Thromboplastin Time 26.9 SEC (24.5-34.5); Prothrombin Time 10.1 sec (9.3-11.8)
[2025-03-28 12:49] LABS: Alanine Aminotransferase 12 U/L (7-40); Albumin 4.2 g/dL (3.2-4.8); Alkaline Phosphatase 45 U/L (46-116); Anion Gap 7 (5-15); BUN/Creatinine Ratio 11.8 (10.0-20.0); Bilirubin, Total 0.3 mg/dL (0.2-1.0); Blood Urea Nitrogen 10 mg/dL (9-23); Calcium 9.5 mg/dL (8.7-10.4); Carbon Dioxide 27 mmol/L (20-31); Chloride 106 mmol/L (98-107); Glucose 90 mg/dL (74-106); Potassium 4.3 mmol/L (3.5-5.1); Sodium 140 mmol/L (136-145); Total Protein 6.4 g/dL (5.7-8.2)
[~2025-03-29] VITALS: Ht 170.2 cm; Wt 86.2 kg
[~2025-03-29] MED LIST changes: +FAMOTIDINE (10MG/ML) 2ML VL IV ONE; +GLYCOPYRROLATE 0.2 MG/ML 1ML VIAL ONE; +HYDROmorphone HCL 2 MG/ML VL/or syr ONE; -HYDRX10T PO; +LIDOCAINE 2% (LOCAL ANESTH.) PF 5ml SDV ONE; +MIDAZOLAM HCL 2MG/2ML 2ml VIAL (1mg/ml) ONE; +ONDANSETRON HCL 4 MG/2 ML VIAL IV ONE; +ONDANSETRON HCL 4 MG/2 ML VIAL ONE; +POTA-211 PO; +PROPOFOL 10 MG/ML 20 ML IV ONE; +ZOFR4T PO; +fentaNYL CITRATE 100 MCG/2 ML VL ONE
--- NOTE | 2025-03-29 10:41 | DVHHP2 ---
GI H&P Pre-Op Assessment Date: 03/29/25 Chief complaint: PGJ malfunction, abdominal pain HPI: per clinic note Past medical history: per clinic note Past surgical history: per clinic note Family history: per clinic note Physical exam: General: NAD, AAOX3 HEENT: PERRL, no scleral icterus, normal hearing, gums without lesions or bleeding, oropharynx clear without erythema or exudate. Neck: Supple without enlargement of the thyroid, or lymphadenopathy. Chest: Normal size and shape, no tenderness, lung baum clear to auscultation and percussion, nonlabored breathing. Heart: RRR, no murmur Abdomen: non-distended, no tenderness to palpation, +BS, no hepatosplenomegaly Extremities: no edema Neurological: CN II-XII intact, sensation intact in all extremities, 5+ strength in all extremities Skin: No rashes, No jaundice Assessment: - PGJ malfunction, abdominal pain Plan: - EGD with PGJ exchange - Risks (bleeding, infection, perforation, reaction to sedation medications and cardiopulmonary arrest) and benefit of the procedure were explained to patient. Patient agrees to undergo the procedure. ELENI LEBRON MD Mar 29, 2025 10:41
[2025-03-29 11:07] VITALS: PULSE 82; RESP 13; TEMP 97.7; O2SAT 98
--- NOTE | 2025-03-29 11:11 | DVHOP2 ---
Operative Report DATE OF OPERATION: 03/29/25 PROCEDURE: Upper Endoscopy. PREOPERATIVE INDICATION: The patient is a 39 -year-old female undergoing endoscopy for abdominal pain and malfunction PGJ POSTOPERATIVE DIAGNOSES: 1. Ulcer in the antrum. Antral gastritis. 2. The old PEG was removed and a new 22 Spanish PEG was inserted into the jejunum. PROCEDURE PERFORMED BY: James Woods SCOPE: Olympus videoendoscope. ASA CLASS: 3 PREOPERATIVE MEDICATIONS: MAC with Dr Brooks PROCEDURE IN DETAIL: After obtaining an informed consent, the patient was placed on left lateral decubitus position. The patient was then sedated with the above medications. A bite block was placed between her teeth. The endoscope was then passed through the oropharynx, into the esophagus, and through the stomach and pylorus up to the second and third part of the duodenum. The duodenum was normal appearance. There was antral ulcer and antral gastritis. Antral biopsies were obtained with cold biopsy forceps. The old PEG J was observed colon from the body of the stomach into the jejunum. It was removed. A new 22 Spanish PGJ was inserted and the tip was guided into the jejunum under direct visualization using raptor grasping forceps. The GE j unction was normal appearance at 35 cm. The esophagus was normal in appearance. The endoscope was then withdrawn. The patient tolerated the procedure well without difficulty. COMPLICATIONS : None SPECIMENS: Antral biopsies DISPOSITION: D/C to home PLAN: 1. Await for biopsy result 2. Patient will follow up in GI clinic to make sure the PGJ works. JAMES WOODS MD Mar 29, 2025 11:11
--- NOTE | 2025-03-29 11:12 | DVHDS2 ---
Physician Discharge Progress N Final Diagnosis: Malfunction PGJ, antral ulcer, antral gastritis Operations or Procedures: Operations or Procedures EGD with cold forceps biopsies, PGJ exchange. Condition on Discharge: Good Disposition: Home Discharge Instructions: Diet: Regular Activity: No Restrictions, As Tolerated Medications: Resume with previous home medications Follow Up Care: Discharge Statement: "Patient was advised to return to the ER or call 911 if any headaches, dizziness, shortness of breath, chest pain, abdominal pain, bleeding, fevers, or worsening of medical condition. Patient was counseled about treatment plan, medications, possible side effects, patientverbalized understanding. All questions were answered to the best of my ability. This discharge took greater then 30 minutes in planning, reviewing documentation, counseling the patient, and discussing with other team members." ELENI LEBRON MD Mar 29, 2025 11:12
[2025-03-29] MEDS: ACETAMINOPHEN IV 1000 MG/100ML (10MG/ML) IV ONE (11:27)
[2025-03-29] MEDS: HYDROmorphone HCL 2 MG/ML VL/or syr IV PRN (11:37)
[2025-03-29 12:30] VITALS: RESP 12
[2025-03-29 13:30] VITALS: BP 88/52; PULSE 53; O2SAT 99
== END | disposition home or self-care (01) ==
LOC: GI 08:25
PROVIDERS: ATTEND Internal Medicine Gastroenterology
DX: K94.23 Gastrostomy malfunction (principal); K29.50 Unspecified chronic gastritis without bleeding; K25.9 Gastric ulcer, unspecified as acute or chronic, without hemorrhage or perforation; K29.60 Other gastritis without bleeding; K21.9 Gastro-esophageal reflux disease without esophagitis; E11.40 Type 2 diabetes mellitus with diabetic neuropathy, unspecified; F43.10 Post-traumatic stress disorder, unspecified; F31.89 Other bipolar disorder; Z79.899 Other long term (current) drug therapy; Z90.710 Acquired absence of both cervix and uterus; Z86.2 Personal history of diseases of the blood and blood-forming organs and certain disorders involving the immune mechanism; Z98.890 Other specified postprocedural states; Z88.0 Allergy status to penicillin; Z88.5 Allergy status to narcotic agent
CPT/HCPCS: 36415; 43239; 43246; 80053; 81001; 84702; 85025; 85610; 85730; 88305; 88342; J1171; J2003; J2250; J2405; J2704; J3010; J3490; J7030; J0131